=== PATIENT | male | born 1970 | race African-American/Black ===

== ENCOUNTER 2016-03-23 18:33 | Emergency (ER) | payer OTHER ==
[2016-03-23 18:41] VITALS: BP 136/100; PULSE 93; TEMP 98.2; BMI 42.5
--- NOTE | 2016-03-23 19:35 | PDOC ---
*Physical Exam - Vital Signs Last Vital Signs Temp Pulse Resp BP Pulse Ox 98.2 F 93 H 18 136/100 100 03/23/16 18:36 03/23/16 18:36 03/23/16 18:36 03/23/16 18:36 03/23/16 18:36 ED Treatment Course - LABORATORY CBC & Chemistry Diagram: 03/23/16 20:00 03/23/16 20:00 Medical Decision Making - Medical Decision Making 03/23/16 19:35 agree with care from ASHLEIGH Holden *DC/Admit/Observation/Transfer Diagnosis at time of Disposition: Chest pain - Discharge Dispostion Disposition: HOME - Prescriptions Prescriptions: Oxycodone HCl/Acetaminophen [Endocet 5-325 Tablet] 1 each PO Q6H PRN #16 tablet MDD 4 tabs PRN Reason: Severe Pain - Referrals Referrals: Silviano Estevez MD [Non Staff, Medical] - Jessica Magdaleno [Primary Care Provider] - - Patient Instructions Printed Discharge Instructions: DI for Atypical Chest Pain Additional Instructions: FOLLOW UP WITH DR. ESTEVEZ THIS WEEK TO ESTABLISH CARE. CALL TO SCHEDULE APPOINTMENT. YOU MUST FOLLOW UP WITHOUT FAIL. TAKE MEDICATIONS PRESCRIBED. DO NOT DRIVE, DRINK ALCOHOL, OR OPERATE HEAVY MACHINERY WHILE TAKING PERCOCET. YOU MUST NOT AND CAN NOT USE THE EMERGENCY DEPARTMENT FOR YOU PAIN MANAGEMENT NEEDS/MEDICATIONS. THIS IS WHY YOU NEED TO SEE A GENERAL MEDICINE PHYSICIAN. RETURN IF ANY CONCERNS FOR FURTHER EVALUATION. Print Language: LIBERIAN
[2016-03-23] MEDS ORDERED: OXYCODONE/APAP 5/325MG COMBO TABLET PO ONE (19:38)
[2016-03-23] MEDS ORDERED: OXYCODONE/APAP 5/325MG COMBO TABLET ONE (19:43)
[2016-03-23 20:10] LABS: MCH 27.2 pg (25.7-33.7); MCHC 32.6 g/dl (32.0-35.9); MEAN CELL VOLUME 83.6 fl (80-96); MEAN PLT VOLUME 9.4 fl (7.5-11.1); RDW 14.4 % (11.9-15.9); WHITE BLOOD COUNT 8.5 K/mm3 (4.0-10.0)
[2016-03-23 20:20] LABS: URINE APPEARANCE CLEAR; URINE BILIRUBIN NEGATIVE (NEGATIVE); URINE BLOOD NEGATIVE (NEGATIVE); URINE COLOR LT. YELLOW; URINE GLUCOSE (UA) NEGATIVE (NEGATIVE); URINE KETONE NEGATIVE (NEGATIVE); URINE LEUK ESTERASE NEGATIVE (NEGATIVE); URINE NITRITE NEGATIVE (NEGATIVE); URINE PROTEIN NEGATIVE (NEGATIVE); URINE UROBILINOGEN 0.2 E.U/dl E.U./dl (0.2-1.0)
[2016-03-23 20:31] LABS: AMYLASE 46 U/L (25-115); ANION GAP 5 (8-16); CALCIUM 8.9 mg/dL (8.5-10.1); CO2 30 mmol/L (21-32); CREATININE 1.1 mg/dL (0.7-1.3); GLUCOSE,RANDOM 97 mg/dL (74-106); SGOT/AST 28 U/L (15-37); SGPT/ALT 24 U/L (12-78)
[2016-03-23 20:32] LABS: ALK PHOS 133 U/L (45-117); BILIRUBIN,TOTAL 0.3 mg/dL (0.2-1.0); TOT PROT 7.7 g/dl (6.4-8.2)
--- NOTE | 2016-03-23 21:05 | PDOC ---
History of Present Illness - General Chief Complaint: Chest Pain Stated Complaint: CHEST DISCOMFORT Time Seen by Provider: 03/23/16 19:14 History Source: Patient Exam Limitations: No Limitations - History of Present Illness Initial Comments: 03/23/16 21:01 45yo Male patient presents to ED c/o epigastric, chest pain, muscle cramps, and back pains. Patient reports PmHx:HTN, HLD, Cardiac Arrythmia. Patient recently seen in this ED 1 month ago for similar episode and was given "injection for pain." He reports h/a every week, nausea and weight gain of 60 lbs over 5 months later corrected to over 6 years. He currently does not have a PCP. He walks with a cane, but was not prescribed it. He reports history of hernia disc but has not seen a orthopedist. Patient reports he visits [facility] for his care, but has not seen anyone there because each time he is there the doctor is out of office. Patient states he has been using the emergency department for his pain medication refills. Patient denies any other complaints at this time. Presenting Symptoms: Back Pain, Chest Pain, Dizziness, Nausea, Other (Muscle Cramps) Timing/Duration: reports: changing over time Severity/Quality: reports: moderate Location: reports: substernal Chest Pain Radiation: reports: no radiation Activities at Onset: reports: no specific activity Prior Chest Pain/Cardiac Workup: reports: No prior chest pain, No prior cardiac workup Modifying Factors: improves with: rest Nitro Today/Relief: No: no nitro taken today, 0.4 mg x 1, 0.4 mg x 2, 0.4 mg x 3 , 0.4 mg x 4, provided by EMS, provided by ED, provided at home, no relief, mild relief, complete relief Aspirin Received prior to arrival (Core Measure): No: no aspirin today, unknown , 81 mg x 1, 81 mg x 2, 81 mg x 3, 81 mg x 4, 325 mg x 1, provided at home, provided by EMS, provided by ED ASA Contraindications (Core Measure): No: Allergy, Other, Active Blding w/i 24 hrs., Plavix, Receiving Warfarin Beta Dontrell given by EMS (Core Measure): No Beta Dontrell taken at Home (Core Measure): No Beta Dontrell Contraindications (Core Measure): Yes: Not Prescribed Beta Dontrell indicated at this time? (Core Measure): No Associated Symptoms: Yes: Back Pain, Chest Pain/pressure, Headache, Nausea Past History - Travel Traveled outside of the country in the last 30 days: No Close contact w/someone who was outside of country & ill: No - Past Medical History Allergies/Adverse Reactions: Allergies Allergy/AdvReac Type Severity Reaction Status Date / Time lactose Allergy Verified 03/23/16 18:35 Home Medications: Ambulatory Orders Cane 1 each MC DAILY PRN #1 each 11/16/14 Methocarbamol [Robaxin -] 500 mg PO TID PRN #30 tablet 11/16/14 Cyclobenzaprine HCl [Flexeril -] 5 mg PO TID PRN #12 tablet 02/03/16 Oxycodone HCl/Acetaminophen [Endocet 5-325 Tablet] 1 each PO Q6H PRN #16 tablet MDD 4 tabs 03/23/16 Cardiac Disorders: Yes (palpitations) Hypercholesterolemia: Yes Other medical history: BACK PROBLEMS - Psycho/Social/Smoking Cessation Hx Anxiety: No Suicidal Ideation: No Smoking History: Never smoked Have you smoked in the past 12 months: No Information on smoking cessation initiated: No Hx Alcohol Use: No Drug/Substance Use Hx: No Substance Use Type: None Cardiac Specific PMH - Complaint Specific PMHX Abdominal Aortic Aneurysm: No Angina: No Cardiac Arrhythmia: Yes Cardiac Stent: No GERD: No Myocardial Infarction: No Pacemaker: No Pulmonary Embolus: No Valvular Heart Disease: No Peripheral Vascular Disease: No Review of Systems - Review of Systems Respiratory: No: Cough, Shortness of Breath, Wheezing Cardiac (ROS): Yes: Chest Pain ABD/GI: Yes: Nausea, Other (Epigastric Abdominal Pain). No: Constipated, Diarrhea, Poor Appetite, Poor Fluid Intake, Vomiting : No: Burning, Dysuria, Flank Pain, Hematuria Musculoskeletal: Yes: Back Pain. No: Muscle Pain, Muscle Weakness Integumentary: No: Bruising, Dryness, Flushing, Rash Neurological: Yes: Headache, Dizziness. No: Numbness, Paresthesia, Seizure, Tremors, Weakness Psychiatric: Yes: Depression Endocrine: No: Symptoms Reported, See HPI, Excessive Sweating, Flushing, Intolerance to Cold, Intolerance to Heat, Increased Hunger, Increased Thirst, Increased Urine, Unexplained Weight Gain, Unexplained Weight Loss, Change in Weight, Other Hematologic/Lymphatic: No: Symptoms Reported, See HPI, Anemia, Blood Clots, Easy Bleeding, Easy Bruising, Bleeding Diathesis, Lymph Node Abnormalities, Swollen Glands, Other All Other Systems: Reviewed and Negative *Physical Exam - Vital Signs Last Vital Signs Temp Pulse Resp BP Pulse Ox 98.2 F 93 H 18 136/100 100 03/23/16 18:36 03/23/16 18:36 03/23/16 18:36 03/23/16 18:36 03/23/16 18:36 - Physical Exam General Appearance: Yes: Nourished, Appropriately Dressed. No: Apparent Distress HEENT: positive: EOMI, ERNA, Normal ENT Inspection, Normal Voice, Symmetrical, TMs Normal, Pharynx Normal Neck: positive: Trachea midline, Supple. negative: Stridor, Lymphadenopathy (R) , Lymphadenopathy (L) Respiratory/Chest: positive: Lungs Clear, Normal Breath Sounds. negative: Crackles, Rales, Rhonchi, Stridor, Wheezing Cardiovascular: positive: Regular Rhythm, Regular Rate. negative: Edema, JVD, Murmur, Bradycardia, Tachycardia, Diastolic Murmur Gastrointestinal/Abdominal: positive: Normal Bowel Sounds, Soft. negative: Rebound, Hepatomegaly, Spleenomegaly Musculoskeletal: positive: Normal Inspection. negative: CVA Tenderness Extremity: positive: Normal Capillary Refill, Normal Inspection, Normal Range of Motion Integumentary: positive: Normal Color, Dry, Warm Neurologic: positive: reimbursement director II-XII NML intact, Fully Oriented, Alert, Normal Mood/ Affect, Normal Response, Motor Strength 5/5 Heart Score/ECG Review - History History: Slightly suspicious - Electrocardiogram EKG: Normal - Age Age: </= 45 - Risk Factors Risk Factors Heart Score: Yes Hx Hypercholesterolemia, Yes Hx Hypertension, No Hx Diabetes, No Smoking History, No Positive family hx of cardiac disease, No Hx Obesity Based on the list above the patient has:: 1-2 risk factors - Troponin Troponin: </= normal limit - Score Heart Score - Total: 1 - ECG Impressions Normal ECG: Yes Non-specific ST Elevation: No Ischemic Changes: No Bradycardia: No Torsades de Pointes: No WPW: No ED Treatment Course - LABORATORY CBC & Chemistry Diagram: 03/23/16 20:00 03/23/16 20:00 - ADDITIONAL ORDERS Additional order review: Laboratory Results 01/12/2803/23/16 03/23/16 21:32 20:00 20:00 Sodium 140 Potassium 4.5 Chloride 105 Carbon Dioxide 30 Anion Gap 5 L BUN 7 Creatinine 1.1 Creat Clearance w eGFR > 60 Random Glucose 97 Calcium 8.9 Total Bilirubin 0.3 AST 28 ALT 24 Alkaline Phosphatase 133 H Troponin I < 0.02 Total Protein 7.7 Albumin 4.0 Total Amylase 46 Lipase 87 Urine Color Lt. yellow Urine Appearance Clear Urine pH 6.0 Ur Specific [place] <= 1.005 Urine Protein Negative Urine Glucose (UA) Negative Urine Ketones Negative Urine Blood Negative Urine Nitrite Negative Urine Bilirubin Negative Urine Urobilinogen 0.2 e.u/dl Ur Leukocyte Esterase Negative 03/23/16 20:00 RBC 5.58 MCV 83.6 MCHC 32.6 RDW 14.4 MPV 9.4 - RADIOLOGY Radiology Studies Ordered: Category Date Time Status GALLBLADDER US [US] Stat Ultrasound 03/23/16 19:38 Completed - Medications Given in the ED: ED Medications Discontinued Medications Generic Name Dose Route Start Last Admin Trade Name Freq PRN Reason Stop Dose Admin Oxycodone/Acetaminophen 2 combo 03/23/16 19:38 03/23/16 19:42 Percocet 5/325 - PO 03/23/16 19:39 1 combo ONCE ONE Administration Medical Decision Making - Medical Decision Making 03/23/16 22:27 Patient has heart score of 1. Normal EKG. Normal Troponin. Plan: d/c to home. PCP follow up/referrals. *DC/Admit/Observation/Transfer Diagnosis at time of Disposition: Chest pain Qualifiers: Chest pain type: unspecified Qualified Code(s): R07.9 - Chest pain, unspecified - Discharge Dispostion Disposition: HOME Condition at time of disposition: Good Admit: No - Prescriptions Prescriptions: Oxycodone HCl/Acetaminophen [Endocet 5-325 Tablet] 1 each PO Q6H PRN #16 tablet MDD 4 tabs PRN Reason: Severe Pain - Referrals Referrals: Jessica Magdaleno [Primary Care Provider] - Silviano Estevez MD [Non Staff, Medical] - - Patient Instructions Printed Discharge Instructions: DI for Atypical Chest Pain Additional Instructions: FOLLOW UP WITH DR. ESTEVEZ THIS WEEK TO ESTABLISH CARE. CALL TO SCHEDULE APPOINTMENT. YOU MUST FOLLOW UP WITHOUT FAIL. TAKE MEDICATIONS PRESCRIBED. DO NOT DRIVE, DRINK ALCOHOL, OR OPERATE HEAVY MACHINERY WHILE TAKING PERCOCET. YOU MUST NOT AND CAN NOT USE THE EMERGENCY DEPARTMENT FOR YOU PAIN MANAGEMENT NEEDS/MEDICATIONS. THIS IS WHY YOU NEED TO SEE A GENERAL MEDICINE PHYSICIAN. RETURN IF ANY CONCERNS FOR FURTHER EVALUATION. Print Language: BERMUDIAN
[2016-03-23 21:21] LABS: PLATELET COMMENT2 NO CLUMPING NOTED; PLATELET COUNT 394 K/MM3 (134-434); PLATELET ESTIMATE ADEQUATE (NORMAL)
[2016-03-23] MEDS ORDERED: KETOROLAC TROMETHAMINE 60 MG/2 ML VIAL ONE (23:11)
[2016-03-23] MEDS ORDERED: KETOROLAC TROMETHAMINE 60 MG/2 ML VIAL IM ONE (23:12)
--- NOTE | 2016-03-24 09:37 | EKG ---
Test Reason : Blood Pressure : / mmHG Vent. Rate : 092 BPM Atrial Rate : 092 BPM P-R Int : 146 ms QRS Dur : 088 ms QT Int : 350 ms P-R-T Axes : 100 -25 -16 degrees QTc Int : 432 ms NORMAL SINUS RHYTHM POSSIBLE LEFT ATRIAL ENLARGEMENT SEPTAL INFARCT (CITED ON OR BEFORE 26-JUL-2007) ABNORMAL ECG WHEN COMPARED WITH ECG OF 16-NOV-2014 14:55, QUESTIONABLE CHANGE IN INITIAL FORCES OF SEPTAL LEADS NONSPECIFIC T WAVE ABNORMALITY NOW EVIDENT IN LATERAL LEADS Confirmed by BLANQUITA LEWIS, CHARLOTTE ([id number]) on 03/24/2016 9:36:53 AM Referred By: Confirmed By:CHARLOTTE JUARES MD
== END 2016-03-23 23:04 | disposition home or self-care (01) ==
LOC: JER 18:33
PROC: 3E0233Z Introduction of Anti-inflammatory into Muscle, Percutaneous Approach (ICD-10-PCS; principal; 2016-03-23)
DX: R07.9 Chest pain, unspecified (principal); I49.8 Other specified cardiac arrhythmias; I10 Essential (primary) hypertension; E78.00 Pure hypercholesterolemia, unspecified
CPT/HCPCS: 36415; 76705-TC; 80053; 81003; 82150; 83690; 84484; 85027; 93005; 93010; 96372; 99281-25

== ENCOUNTER 2018-12-15 21:21 | Inpatient (IN) | payer OTHER ==
[2018-12-15 21:35] VITALS: BMI 38.7
--- NOTE | 2018-12-15 21:35 | PDOC ---
Rapid Medical Evaluation Chief Complaint: Foreign Body (FB) Time Seen by Provider: 12/15/18 21:26 Medical Evaluation: Allergies Allergy/AdvReac Type Severity Reaction Status Date / Time lactose Allergy Verified 03/23/16 18:35 12/15/18 21:26 I have performed a brief in-person evaluation of this patient. The patient presents with a chief complaint of: A per EMS, pt called because he felt like a bug flew into his eye. In the ED, pt unsure why he is here, he has flight of ideas with a flat affect. (+)visual hallucinations, saw someone turning into a Robot downtown. Used to take seroquel for "depression and bipolar" Denies SI/HI. The patient will proceed to the ED for further evaluation. Discharge Disposition - Diagnosis Mental health problem - Referrals - Patient Instructions - Post Discharge Activity
[2018-12-15] MEDS ORDERED: HALOPERIDOL LACTATE 5 MG/ML IM ONE (21:51)
[2018-12-15] MEDS ORDERED: HALOPERIDOL LACTATE 5 MG/ML ONE (21:56)
[2018-12-15] MEDS ORDERED: LORazepam 2 MG/ML SDV VIAL ONE (21:56)
--- NOTE | 2018-12-15 22:50 | PDOC ---
Documentation entered by Ruchi Mcknight SCRIBE, acting as scribe for Mamie Alexis MD. Mamie Alexis MD: This documentation has been prepared by the Juan Luis scherer Adrianna, SCRIBE, under my direction and personally reviewed by me in its entirety. I confirm that the documentation accurately reflects all work, treatment, procedures, and medical decision making performed by me. Attending Attestation - Resident Resident Name: Sa Nayelyira - ED Attending Attestation I have performed the following: I have examined & evaluated the patient, The case was reviewed & discussed with the resident, I agree w/resident's findings & plan - HPI HPI: 12/15/18 22:46 48 YOM with h/o depression and bipolar presenting with agitation, disorganized thought, pressured speech, flight of ideas, while in triage, pt called because he felt like a bug flew into his eye. (+)visual hallucinations, saw someone turning into a Robot downtown. Denies SI/HI. pacing around department, talking loudly, disorganized thought and pressuring of speech, grandiose ideas and hallucinations. history somewhat limited due to clinical/psychiatric condition. - Physicial Exam PE: 12/15/18 22:48 tangential speech, disorganized thought, agitated, poorly cooperative, flat affect no SI/HI ambulatory, speech pressured. LANDON x4, no respiratory distress, abdomen nontender, back exam normal, skin color normal for ethinicity. 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 very disorganized behavior/agitated. given ativan/haldol - given profound agitation will obtain labs/EKG, utox, monitor 12/16/18 01:26 more calm with meds 1:1 security at bedside with patient, no events. psych eval/consult in the AM, no call back with answering service ASHLEIGH Gutiérrez. call to [facility] in the AM for bipolar/manic flare s/o overnight attg pending dispo. 12/16/18 02:07 12/16/18 16:57
--- NOTE | 2018-12-15 22:57 | PDOC ---
History of Present Illness - General Chief Complaint: Altered Mental Status Stated Complaint: EDP Time Seen by Provider: 12/15/18 21:26 History Source: Patient, Other Exam Limitations: Clinical Condition - History of Present Illness Initial Comments: 48yo M with possible PMH of Bipolar BIBA for a bug flying into his eye 3w ago. Pt states that a bug flew into his eye and the police pushed him down affecting his eye. Pt states that he did not want to come here and was forced to come here. He states he was out drinking because his friends and they were telling him upsetting things. RME note states that patient is seeing an upside down robot. 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 Past History - Past Medical History Allergies/Adverse Reactions: Allergies lactose Allergy (Verified 12/15/18 21:35) Home Medications: Ambulatory Orders Cane 1 each MC DAILY PRN #1 each 11/16/14 Methocarbamol [Robaxin -] 500 mg PO TID PRN #30 tablet 11/16/14 Cyclobenzaprine HCl [Flexeril -] 5 mg PO TID PRN #12 tablet 02/03/16 Oxycodone HCl/Acetaminophen [Endocet 5-325 Tablet] 1 each PO Q6H PRN #16 tablet MDD 4 tabs 03/23/16 - Immunization History Tetanus Status: Unknown - Social History Smoking Status: Current some day smoker Number of Cigarettes Per Day: 1 *Physical Exam - Vital Signs Last Vital Signs Temp Pulse Resp BP Pulse Ox 98.8 F 88 18 165/115 H 99 12/15/18 21:25 12/15/18 21:25 12/15/18 21:25 12/15/18 21:25 12/15/18 21:25 Plan - Order(s) Order(s): Orders last 12 hours Category Date Time Status CBC WITH DIFFERENTIAL Stat Lab 12/15/18 21:49 Uncollected DRUG SCREEN,UR ER- [facility] Stat Lab 12/15/18 21:50 Uncollected UA ([facility]) ONLY Stat Lab 12/15/18 21:49 Uncollected - Medications Given in the ED: ED Medications Discontinued Medications Generic Name Dose Route Start Last Admin Trade Name Freq PRN Reason Stop Dose Admin Lorazepam 2 mg 10/04/19 21:48 12/15/18 21:55 Ativan Injection - IVPUSH 12/15/18 21:49 Not Given ONCE ONE Lorazepam 5 mg 12/15/18 21:50 12/15/18 21:55 Ativan Injection - IVPUSH 12/15/18 21:51 Not Given ONCE ONE
--- NOTE | 2018-12-15 22:58 | PDOC ---
History of Present Illness - General Chief Complaint: Altered Mental Status Stated Complaint: EDP Time Seen by Provider: 12/15/18 21:26 History Source: Patient, Other - History of Present Illness Initial Comments: 12/15/18 22:58 48yo M with possible PMH of Bipolar BIBA for a bug flying into his eye 3w ago. Pt states that a bug flew into his eye and the police pushed him down affecting his eye. Pt states that he did not want to come here and was forced to come here. He states he was out drinking because his friends and they were telling him upsetting things. RME note states that patient is seeing an upside down robot. 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 *Patient is unable to give story, goes off on tangents. difficult to follow thought process. Answers some questions but not all. States he only takes meloxicam but ran out of medications. Per RME note, patient was taking Seroquel. Past History - Past Medical History Allergies/Adverse Reactions: Allergies Allergy/AdvReac Type Severity Reaction Status Date / Time lactose Allergy Verified 12/15/18 21:35 Home Medications: Ambulatory Orders Cane 1 each MC DAILY PRN #1 each 11/16/14 Methocarbamol [Robaxin -] 500 mg PO TID PRN #30 tablet 11/16/14 Cyclobenzaprine HCl [Flexeril -] 5 mg PO TID PRN #12 tablet 02/03/16 Oxycodone HCl/Acetaminophen [Endocet 5-325 Tablet] 1 each PO Q6H PRN #16 tablet MDD 4 tabs 03/23/16 Cardiac Disorders: Yes (palpitations) COPD: No Diabetes: No HTN: Yes Hypercholesterolemia: Yes Psychiatric Problems: Yes (bipolar, depression) - Psycho Social/Smoking Cessation Hx Smoking History: Current some day smoker Have you smoked in the past 12 months: No Number of Cigarettes Smoked Daily: 1 Information on smoking cessation initiated: No Hx Alcohol Use: Yes Drug/Substance Use Hx: No Substance Use Type: None Review of Systems - Review of Systems Constitutional: No: Chills HEENTM: Yes: Other (eye "feels weird" R eye) Respiratory: No: Symptoms reported Cardiac (ROS): No: Symptoms Reported ABD/GI: No: Symptoms Reported : No: Symptoms Reported Musculoskeletal: No: Symptoms Reported Integumentary: No: Symptoms Reported Neurological: No: Symptoms reported Psychiatric: Yes: Other (, VH) *Physical Exam - Vital Signs Last Vital Signs Temp Pulse Resp BP Pulse Ox 98.8 F 88 18 165/115 H 99 12/15/18 21:25 12/15/18 21:25 12/15/18 21:25 12/15/18 21:25 12/15/18 21:25 - Physical Exam General Appearance: Yes: Appropriately Dressed, Obese, Other (nonsensical statements) HEENT: positive: EOMI, ERNA, Pharynx Normal Neck: positive: Trachea midline, Supple. negative: Lymphadenopathy (R), Lymphadenopathy (L) Respiratory/Chest: positive: Lungs Clear, Normal Breath Sounds. negative: Crackles, Rales, Rhonchi, Stridor, Wheezing Cardiovascular: positive: Regular Rhythm, Regular Rate, S1, S2. negative: Edema , JVD, Murmur Vascular Pulses: Dorsalis-Pedis (R): 2+, Doralis-Pedis (L): 2+ Gastrointestinal/Abdominal: positive: Normal Bowel Sounds, Soft. negative: Tender, Rebound, Tenderness, Hernia Musculoskeletal: negative: CVA Tenderness, Muscle Spasm Extremity: positive: Normal Capillary Refill Integumentary: positive: Normal Color, Dry, Warm. negative: Cold, Clammy, Rash Neurologic: positive: director of undergraduate admissions II-XII NML intact, Alert, Normal Response, Motor Strength 5/5. negative: Normal Mood/Affect ED Treatment Course - LABORATORY CBC & Chemistry Diagram: 12/15/18 23:10 12/15/18 23:10 - Medications Given in the ED: ED Medications Discontinued Medications Generic Name Dose Route Start Last Admin Trade Name Freq PRN Reason Stop Dose Admin Haloperidol 5 mg 12/15/18 21:51 12/15/18 22:48 Haldol Injection (Fast Acting) - IM 12/15/18 21:52 5 mg ONCE ONE Administration Lorazepam 2 mg 12/15/18 21:48 12/15/18 21:55 Ativan Injection - IVPUSH 12/15/18 21:49 Not Given ONCE ONE Lorazepam 5 mg 12/15/18 21:50 12/15/18 21:55 Ativan Injection - IVPUSH 12/15/18 21:51 Not Given ONCE ONE Lorazepam 2 mg 12/15/18 21:51 12/15/18 22:48 Ativan Injection - IM 12/15/18 21:52 2 mg ONCE ONE Administration Medical Decision Making - Medical Decision Making 12/16/18 01:22 48yo M with likely pmh of schizophrenia/bipolar BIBA for psychiatric problem. Vitals significant for hypertension pt talking tangentially, nonsensical, not answering questions directly, stating he hears his friends, stating he wants to leave. mood is labile; pt goes from threatening personnel to being flirtatious to laughing. tangential thinking, AH/VH, labile mood concerning for manic episode. Most times it is difficult to interject and redirect patient. Patient does not have capicity to make decisions, cannot let patient leave AMA without being seen by psych. to calm down patient (he was roaming halls, being loud and distrupting others) 2mg IM ativan and 5mg IM Haldol given. labs including cbc, cmp, salicylates, apap, alcohol, utox. ekg labs wnl. utox and ekg pending. psych consult pt will need psych clearance and/or transfer to psychiatric facility. signed out to night team Discharge - Discharge Information Problems reviewed: Yes Clinical Impression/Diagnosis: Mental health problem - Follow up/Referral - Patient Discharge Instructions - Post Discharge Activity
[2018-12-15 23:22] LABS: BASO % 0.7 % (0-2.0); EOS % 1.7 % (0-4.5); HEMATOCRIT 46.2 % (35.4-49); HEMOGLOBIN 15.1 GM/dL (11.7-16.9); LYMPH % 29.5 % (8-40); MCH 28.3 pg (25.7-33.7); MCHC 32.7 g/dl (32.0-35.9); MEAN CELL VOLUME 86.5 fl (80-96); MONO % 4.2 % (3.8-10.2); NEUT % 63.9 % (42.8-82.8); RBC 5.34 M/mm3 (4.00-5.60); RDW 14.6 % (11.9-15.9); WHITE BLOOD COUNT 7.7 K/mm3 (4.0-10.0)
[2018-12-15 23:42] LABS: MEAN PLT VOLUME 9.3 fl (7.5-11.1)
[2018-12-15 23:43] LABS: PLATELET COUNT 360 K/MM3 (134-434)
[2018-12-15 23:55] LABS: ALBUMIN 4.2 g/dl (3.4-5.0); BILIRUBIN,TOTAL 0.5 mg/dL (0.2-1); BLOOD UREA NITROGEN 11.2 mg/dL (7-18); CALCIUM 9.2 mg/dL (8.5-10.1); CREATININE 1.2 mg/dL (0.55-1.3); POTASSIUM 3.5 mmol/L (3.5-5.1); TOT PROT 7.5 g/dl (6.4-8.2)
--- NOTE | 2018-12-16 02:08 | PDOC ---
*Physical Exam - Vital Signs Last Vital Signs Temp Pulse Resp BP Pulse Ox 98.8 F 88 18 165/115 H 99 12/15/18 21:25 12/15/18 21:25 12/15/18 21:25 12/15/18 21:25 12/15/18 21:25 ED Treatment Course - LABORATORY CBC & Chemistry Diagram: 12/15/18 23:10 12/15/18 23:10 - ADDITIONAL ORDERS Additional order review: Laboratory Results 12/15/18 12/15/18 12/15/18 23:10 23:10 23:10 Sodium 143 Potassium 3.5 Chloride 109 H Carbon Dioxide 27 Anion Gap 8 BUN 11.2 Creatinine 1.2 Est GFR (CKD-EPI)AfAm 82.96 Est GFR (CKD-EPI)NonAf 71.58 Random Glucose 135 H Calcium 9.2 Total Bilirubin 0.5 AST 40 H ALT 34 Alkaline Phosphatase 134 H Total Protein 7.5 Albumin 4.2 Salicylates Acetaminophen <2.0 Alcohol, Quantitative < 3.0 12/15/18 23:10 Sodium Potassium Chloride Carbon Dioxide Anion Gap BUN Creatinine Est GFR (CKD-EPI)AfAm Est GFR (CKD-EPI)NonAf Random Glucose Calcium Total Bilirubin AST ALT Alkaline Phosphatase Total Protein Albumin Salicylates < 1.7 L Acetaminophen Alcohol, Quantitative 12/15/18 23:10 RBC 5.34 MCV 86.5 MCHC 32.7 RDW 14.6 MPV 9.3 Neutrophils % 63.9 Lymphocytes % 29.5 Monocytes % 4.2 Eosinophils % 1.7 Basophils % 0.7 - Medications Given in the ED: ED Medications Discontinued Medications Generic Name Dose Route Start Last Admin Trade Name Lety PRN Reason Stop Dose Admin Haloperidol 5 mg 12/15/18 21:51 12/15/18 22:48 Haldol Injection (Fast Acting) - IM 12/15/18 21:52 5 mg ONCE ONE Administration Lorazepam 2 mg 12/15/18 21:48 12/15/18 21:55 Ativan Injection - IVPUSH 12/15/18 21:49 Not Given ONCE ONE Lorazepam 5 mg 12/15/18 21:50 12/15/18 21:55 Ativan Injection - IVPUSH 12/15/18 21:51 Not Given ONCE ONE Lorazepam 2 mg 12/15/18 21:51 12/15/18 22:48 Ativan Injection - IM 12/15/18 21:52 2 mg ONCE ONE Administration Medical Decision Making - Medical Decision Making Patient signed out by Dr. Adler 48yo M with possible PMH of Bipolar BIBA for a bug flying into his eye 3w ago. Pending urine collection, EKG, and psych consult 12/16/18 02:07 EKG: rate 63, QTc 435, ST elevations in V1, V2, and V3 without reciprocal changes Patient states he has palpitations. Discussed case with Dr. Parker via transfer center for concern for STEMI He is not overly convinced this is an DC He states we can medically manage the patient for now; admit for ECHO and serial troponins We can give 325 ASA as it won't hurt the patient His cell number [phone] in case we would like to directly consult with him We will admit for EKG changes Microblog sent 12/16/18 04:[address] Hoyt who accepted patient for telemetry observation under Dr. Milligan 12/16/18 05:08 Call to Junito Gutiérrez [phone] unsuccessful. This is likely the incorrect number. 12/16/18 05:11 Left a voicemail for school psychology professor Junito Gutiérrez, 12/16/18 05:15 Dr. Milligan requested med/surg admission. Order changed. 12/16/18 05:23 Second call to school psychology professor Junito Gutiérrez. Left a voicemail. 12/16/18 06:32 Discharge - Discharge Information Problems reviewed: Yes Clinical Impression/Diagnosis: Mental health problem, ST segment changes on electrocardiogram, Palpitations Condition: Improved Disposition: AGAINST MEDICAL ADVICE - Admission Yes - Follow up/Referral - Patient Discharge Instructions - Post Discharge Activity
--- NOTE | 2018-12-16 03:36 | PDOC ---
*Physical Exam - Vital Signs Last Vital Signs Temp Pulse Resp BP Pulse Ox 98.8 F 88 18 165/115 H 99 12/15/18 21:25 12/15/18 21:25 12/15/18 21:25 12/15/18 21:25 12/15/18 21:25 ED Treatment Course - LABORATORY CBC & Chemistry Diagram: 12/15/18 23:10 12/15/18 23:10 - ADDITIONAL ORDERS Additional order review: Laboratory Results 12/15/18 12/15/18 12/15/18 23:10 23:10 23:10 WBC RBC Hgb Hct MCV MCH MCHC RDW Plt Count MPV Absolute Neuts (auto) Neutrophils % Lymphocytes % Monocytes % Eosinophils % Basophils % Nucleated RBC % Sodium 143 Potassium 3.5 Chloride 109 H Carbon Dioxide 27 Anion Gap 8 BUN 11.2 Creatinine 1.2 Est GFR (CKD-EPI)AfAm 82.96 Est GFR (CKD-EPI)NonAf 71.58 Random Glucose 135 H Calcium 9.2 Total Bilirubin 0.5 AST 40 H ALT 34 Alkaline Phosphatase 134 H Total Protein 7.5 Albumin 4.2 Salicylates Acetaminophen <2.0 Alcohol, Quantitative < 3.0 12/15/18 12/15/18 23:10 23:10 WBC 7.7 RBC 5.34 Hgb 15.1 Hct 46.2 MCV 86.5 MCH 28.3 MCHC 32.7 RDW 14.6 Plt Count 360 MPV 9.3 Absolute Neuts (auto) 4.9 Neutrophils % 63.9 Lymphocytes % 29.5 Monocytes % 4.2 Eosinophils % 1.7 Basophils % 0.7 Nucleated RBC % 0 Sodium Potassium Chloride Carbon Dioxide Anion Gap BUN Creatinine Est GFR (CKD-EPI)AfAm Est GFR (CKD-EPI)NonAf Random Glucose Calcium Total Bilirubin AST ALT Alkaline Phosphatase Total Protein Albumin Salicylates < 1.7 L Acetaminophen Alcohol, Quantitative 12/15/18 23:10 RBC 5.34 MCV 86.5 MCHC 32.7 RDW 14.6 MPV 9.3 Neutrophils % 63.9 Lymphocytes % 29.5 Monocytes % 4.2 Eosinophils % 1.7 Basophils % 0.7 - Medications Given in the ED: ED Medications Discontinued Medications Generic Name Dose Route Start Last Admin Trade Name Freq PRN Reason Stop Dose Admin Haloperidol 5 mg 12/15/18 21:51 12/15/18 22:48 Haldol Injection (Fast Acting) - IM 12/15/18 21:52 5 mg ONCE ONE Administration Lorazepam 2 mg 12/15/18 21:48 12/15/18 21:55 Ativan Injection - IVPUSH 12/15/18 21:49 Not Given ONCE ONE Lorazepam 5 mg 12/15/18 21:50 12/15/18 21:55 Ativan Injection - IVPUSH 12/15/18 21:51 Not Given ONCE ONE Lorazepam 2 mg 12/15/18 21:51 12/15/18 22:48 Ativan Injection - IM 12/15/18 21:52 2 mg ONCE ONE Administration Medical Decision Making - Medical Decision Making 12/16/18 03:34 Pt's EKG was handed to me and there is an anterior STEMI; compared to the EKGs from 2017, pt has ST elevation. We are calling [facility] 12/16/18 03:36 Pt has been in the ER for 6hrs and is awaiting psych evaluation. 12/16/18 03:45 [facility] called; they want to follow troponins and manage patient medically here. 12/16/18 03:47 Pt will get ASA plavix. We are still waiting for the card enzyme add on to come back. We will send off another cardiac enzyme (6hr; 2nd set) Pt will be admitted to the hospitalist tele unit. 12/16/18 05:09 1st CPK 395; 2nd 312; both troponins negative. Pt will be admitted for telemetry obs; hospitalist aware. Discharge - Discharge Information Problems reviewed: Yes Clinical Impression/Diagnosis: Mental health problem, ST segment changes on electrocardiogram, Palpitations Condition: Guarded - Admission Yes - Follow up/Referral - Patient Discharge Instructions - Post Discharge Activity
[2018-12-16] MEDS ORDERED: ASPIRIN 81 MG CHEWABLE TABLETS PO ONE (03:46)
[2018-12-16] MEDS ORDERED: CLOPIDOGREL BISULFATE 300 MG TABLET PO ONE (03:46)
[2018-12-16] MEDS ORDERED: CLOPIDOGREL BISULFATE 300 MG TABLET ONE (03:52)
[2018-12-16] MEDS ORDERED: ASPIRIN 81 MG CHEWABLE TABLETS ONE (03:52)
[2018-12-16 04:16] LABS: URINE APPEARANCE CLEAR; URINE BILIRUBIN NEGATIVE (NEGATIVE); URINE COLOR YELLOW; URINE GLUCOSE (UA) NEGATIVE (NEGATIVE); URINE KETONE TRACE (NEGATIVE); URINE LEUK ESTERASE NEGATIVE (NEGATIVE); URINE NITRITE NEGATIVE (NEGATIVE); URINE PROTEIN NEGATIVE (NEGATIVE); URINE UROBILINOGEN 0.2 mg/dL (0.2-1.0)
[2018-12-16 04:36] LABS: COCAINE, UR NEGATIVE ng/ml (CUTOFF=300); METHADONE, UR NEGATIVE ng/ml (CUTOFF=300); OPIATES, URI NEGATIVE ng/ml (CUTOFF=300); URINE AMPHETAMINES NEGATIVE ng/ml (CUTOFF=500); URINE BARBITURATES NEGATIVE ng/ml (CUTOFF=200); URINE BENZODIAZEPINES NEGATIVE ng/ml (CUTOFF=200)
[2018-12-16 04:39] LABS: PHENCYCLIDINE,URINE POSITIVE ng/ml (CUTOFF=25)
--- NOTE | 2018-12-16 05:35 | PN ---
Teaching Attending Note Name of Resident: Camryn Hoyt ATTENDING PHYSICIAN STATEMENT I saw and evaluated the patient. I reviewed the resident's note and discussed the case with the resident. I agree with the resident's findings and plan as documented. SUBJECTIVE: 48yo M with possible PMH of Bipolar BIBA for a bug flying into his eye 3w ago. There was some concern over elevated st segments in anterior leads in but lack of clinical symptoms (no chest pain or shortness of breath) and negative troponins x2 are not consistent with ACS. Urine drug screen was positive for PCP. Patient was agitated in ER and given multiple doses of ativan and haldol to calm him down. OBJECTIVE: Last Vital Signs Temp Pulse Resp BP Pulse Ox 97.5 F L 70 17 140/83 99 12/16/18 03:44 12/16/18 03:44 12/16/18 03:44 12/16/18 03:44 12/16/18 03:44 gen - disheveled heent- atraumatic cv-s1+s2+rrr chest clear skin - no rashes Abnormal Lab Results 12/15/18 12/15/18 12/15/18 23:10 23:10 23:10 Chloride 109 H Random Glucose 135 H AST 40 H Alkaline Phosphatase 134 H Creatine Kinase 395 H Urine Ketones Salicylates < 1.7 L Phencyclidine Screen 12/16/18 12/16/18 12/16/18 04:01 04:01 04:15 Chloride Random Glucose AST Alkaline Phosphatase Creatine Kinase 312 H Urine Ketones Trace H Salicylates Phencyclidine Screen Positive A* ekg reviewed ASSESSMENT AND PLAN: #acute PCP intoxication #Bipolar disorder off medication #Mild CK elevation likely from underlying rhabdo -med/surg -iv fluid hydration -one to one observation for safety -check electrolytes, replete prn -ativan, haldol prn if agitation -CIWA -psych eval -DVT ppx
[2018-12-16] MEDS ORDERED: FOLIC ACID INJECTION - 1 MG, THIAMINE HCL 100 MG, MULTIVIT INJECTION ADULT 10 ML in SOD... IVPB ONE (06:59)
[2018-12-16] MEDS ORDERED: LORazepam 2 MG/ML SDV VIAL IVPUSH PRN (06:59)
[2018-12-16] MEDS ORDERED: HALOPERIDOL LACTATE 5 MG/ML IM PRN (07:00)
--- NOTE | 2018-12-16 07:28 | HP ---
CHIEF COMPLAINT: Agitation PCP: HISTORY OF PRESENT ILLNESS: 48 y/o M with PMHx of Bipolar depression (unclear if additionally has schizophrenia, HTN, HLD however mentioned as per EMR) was BIBEMS for agitation, tangential thoughts, disorganized thought, and flight of ideas. As per EMR, patient was extremely agitated and hallucinating (Saw robots) requiring Haloperidol and IV Ativan. During my interview, patient makes mention of a bug or tree bark landing in his eye 2-3 weeks ago. He then mentions he has had increasing EtOH use and smoking marijuana because of recent of his friend. Patient is unable to provide additional history as he veers off into tangents with nonsensical speech and has a difficult to follow thought process. EKG done in ED revealed some possible repolarization changes but concerning for ST segment elevation in V1-V3 however patient did not have sign of ACS. ED Staff discussed case with [facility] for which Dr. Parker (cell [phone]) who says this is not concerning for STEMI. Of note, he mentions he is on meloxicam for chronic back pain. Additionally mentions previously using seroquel 25mg daily but has not used in some time. Denies suicidal ideation. ER course was notable for: (1) Utox + for PCP (2) Ativan, Haldol (3) Psych consult Recent Travel: Denies PAST MEDICAL HISTORY: As above PAST SURGICAL HISTORY: Unable to obtain Social History: Smoking: Unable to obtain Alcohol: Unable to quantify however mentions using EtOH Drugs: Unable to quantify however mentions smoking marijuana Allergies lactose Allergy (Verified 12/15/18 21:35) HOME MEDICATIONS: Home Medications Medication Instructions Recorded Cane 1 each MC DAILY PRN #1 each 11/16/14 Methocarbamol [Robaxin -] 500 mg PO TID PRN #30 tablet 11/16/14 Cyclobenzaprine HCl [Flexeril -] 5 mg PO TID PRN #12 tablet 02/03/16 Oxycodone HCl/Acetaminophen 1 each PO Q6H PRN #16 tablet MDD 4 03/23/16 [Endocet 5-325 Tablet] tabs REVIEW OF SYSTEMS As per HPI PHYSICAL EXAMINATION Vital Signs - 24 hr 12/15/18 12/16/18 21:25 03:44 Temperature 98.8 F 97.5 F L Pulse Rate 88 Pulse Rate [ 70 Right] Respiratory 18 17 Rate Blood Pressure 165/115 H Blood Pressure 140/83 [Left Arm] O2 Sat by Pulse 99 99 Oximetry (%) GENERAL: Disheveled, Awake, alert HEAD: NCAT LUNGS: Clear to auscultation bilaterally. No wheezes, no crackles. HEART: Regular rate and rhythm, normal S1 and S2 without murmur ABDOMEN: Obese, Soft, nontender, + bowel sounds EXTREMITIES: No peripheral edema. Laboratory Results - last 24 hr 12/15/18 12/15/18 12/15/18 23:10 23:10 23:10 WBC 7.7 RBC 5.34 Hgb 15.1 Hct 46.2 MCV 86.5 MCH 28.3 MCHC 32.7 RDW 14.6 Plt Count 360 MPV 9.3 Absolute Neuts (auto) 4.9 Neutrophils % 63.9 Lymphocytes % 29.5 Monocytes % 4.2 Eosinophils % 1.7 Basophils % 0.7 Nucleated RBC % 0 Sodium 143 Potassium 3.5 Chloride 109 H Carbon Dioxide 27 Anion Gap 8 BUN 11.2 Creatinine 1.2 Est GFR (CKD-EPI)AfAm 82.96 Est GFR (CKD-EPI)NonAf 71.58 Random Glucose 135 H Calcium 9.2 Total Bilirubin 0.5 AST 40 H ALT 34 Alkaline Phosphatase 134 H Creatine Kinase Creatine Kinase Index CK-MB (CK-2) Troponin I Total Protein 7.5 Albumin 4.2 Urine Color Urine Appearance Urine pH Ur Specific [place] Urine Protein Urine Glucose (UA) Urine Ketones Urine Blood Urine Nitrite Urine Bilirubin Urine Urobilinogen Ur Leukocyte Esterase Salicylates < 1.7 L Opiates Screen Methadone Screen Acetaminophen Barbiturate Screen Phencyclidine Screen Ur Amphetamines Screen MDMA (Ecstasy) Screen Benzodiazepines Screen Cocaine Screen U Marijuana (THC) Screen Alcohol, Quantitative 12/15/18 12/15/18 12/16/18 23:10 23:10 04:01 WBC RBC Hgb Hct MCV MCH MCHC RDW Plt Count MPV Absolute Neuts (auto) Neutrophils % Lymphocytes % Monocytes % Eosinophils % Basophils % Nucleated RBC % Sodium Potassium Chloride Carbon Dioxide Anion Gap BUN Creatinine Est GFR (CKD-EPI)AfAm Est GFR (CKD-EPI)NonAf Random Glucose Calcium Total Bilirubin AST ALT Alkaline Phosphatase Creatine Kinase 395 H Creatine Kinase Index 0.3 CK-MB (CK-2) 1.2 Troponin I < 0.02 Total Protein Albumin Urine Color Yellow Urine Appearance Clear Urine pH 6.0 Ur Specific [place] 1.016 Urine Protein Negative Urine Glucose (UA) Negative Urine Ketones Trace H Urine Blood Negative Urine Nitrite Negative Urine Bilirubin Negative Urine Urobilinogen 0.2 Ur Leukocyte Esterase Negative Salicylates Opiates Screen Methadone Screen Acetaminophen <2.0 Barbiturate Screen Phencyclidine Screen Ur Amphetamines Screen MDMA (Ecstasy) Screen Benzodiazepines Screen Cocaine Screen U Marijuana (THC) Screen Alcohol, Quantitative < 3.0 12/16/18 12/16/18 04:01 04:15 WBC RBC Hgb Hct MCV MCH MCHC RDW Plt Count MPV Absolute Neuts (auto) Neutrophils % Lymphocytes % Monocytes % Eosinophils % Basophils % Nucleated RBC % Sodium Potassium Chloride Carbon Dioxide Anion Gap BUN Creatinine Est GFR (CKD-EPI)AfAm Est GFR (CKD-EPI)NonAf Random Glucose Calcium Total Bilirubin AST ALT Alkaline Phosphatase Creatine Kinase 312 H Creatine Kinase Index 0.3 CK-MB (CK-2) 1.2 Troponin I < 0.02 Total Protein Albumin Urine Color Urine Appearance Urine pH Ur Specific [place] Urine Protein Urine Glucose (UA) Urine Ketones Urine Blood Urine Nitrite Urine Bilirubin Urine Urobilinogen Ur Leukocyte Esterase Salicylates Opiates Screen Negative Methadone Screen Negative Acetaminophen Barbiturate Screen Negative Phencyclidine Screen Positive A* Ur Amphetamines Screen Negative MDMA (Ecstasy) Screen Negative Benzodiazepines Screen Negative Cocaine Screen Negative U Marijuana (THC) Screen Negative Alcohol, Quantitative Active Medications Folic Acid (Folic Acid -) 1 mg PO DAILY RODRI Haloperidol (Haldol Injection (Fast Acting) -) 5 mg IM Q4H PRN PRN Reason: ANXIETY Folic Acid 1 mg/ Thiamine HCl 100 mg/ Multivitamins/Minerals 10 ml/ Sodium Chloride 1,000 mls @ 125 mls/hr IVPB ONCE ONE Stop: 12/16/18 14:58 Lorazepam (Ativan Injection -) 2 mg IVPUSH Q4H PRN PRN Reason: ANXIETY Multivitamins/Minerals/Vitamin C (Tab-A-Vit -) 1 tab PO DAILY RODRI Thiamine HCl (Vitamin B1 -) 100 mg PO DAILY RODRI ASSESSMENT/PLAN: 48 y/o M with PMHx of Bipolar depression was BIBEMS for agitation, tangential thoughts, disorganized thought, and flight of ideas. #PCP Intoxication -Continue Haloperidol, Lorazepam PRN for agitation/Anxiety -IV Hydration via Banana bag -1:1 observation -Replete lytes -CIWA protocol -Thiamine/FOlic acid/MVI #Hx of Bipolar depression -Currently off medications -Psych (Dr. Crocker) COnsulted #Repolarization changes on EKG -No clinical signs of ACS, Trop < 0.02 x 2 -Trend trop and EKG -Dr. Macdonald at [facility] mentions not concerning for CT #FEN -Banana bag -Replete lytes PRN -Regular diet #PPx -DVT: SCDs Dispo: Admit to Med-Surg Visit type - Emergency Visit Emergency Visit: Yes ED Registration Date: 12/16/18 Care time: The patient presented to the Emergency Department on the above date and was hospitalized for further evaluation of their emergent condition. - New Patient This patient is new to me today: Yes Date on this admission: 12/16/18 - Critical Care Critical Care patient: No ATTENDING PHYSICIAN STATEMENT I saw and evaluated the patient. I reviewed the resident's note and discussed the case with the resident. I agree with the resident's findings and plan as documented. SUBJECTIVE: OBJECTIVE: ASSESSMENT AND PLAN:
[2018-12-16 09:05] VITALS: BP 145/89; PULSE 76; TEMP 97.9
--- NOTE | 2018-12-16 09:49 | EKG ---
Test Reason : Blood Pressure : / mmHG Vent. Rate : 063 BPM Atrial Rate : 063 BPM P-R Int : 166 ms QRS Dur : 088 ms QT Int : 426 ms P-R-T Axes : 045 -09 004 degrees QTc Int : 435 ms NORMAL SINUS RHYTHM ST ELEVATION, CONSIDER EARLY REPOLARIZATION, PERICARDITIS, OR INJURY NONSPECIFIC ST ABNORMALITY ABNORMAL ECG Confirmed by BRADLEY BRYANT MD ([id number]) on 12/16/2018 9:49:39 AM Referred By: Confirmed By:BRADLEY BRYANT MD
[2018-12-16] MEDS ORDERED: FOLIC ACID 1 MG TABLET (FP) ONE (09:56)
[2018-12-16] MEDS ORDERED: THIAMINE HCL 100 MG TABLET (FP) ONE (09:56)
[2018-12-16] MEDS ORDERED: MULTIVITAMINS (DAILY MVI) TABLET (FP) PO SCH (10:00)
[2018-12-16] MEDS ORDERED: THIAMINE HCL 100 MG TABLET (FP) PO SCH (10:00)
[2018-12-16] MEDS ORDERED: FOLIC ACID 1 MG TABLET (FP) PO SCH (10:00)
[2018-12-16] MEDS ORDERED: LIDOCAINE 5% TOPICAL PATCH TP SCH (10:15)
--- NOTE | 2018-12-16 11:10 | PN ---
Progress Note (short form) - Note Progress Note: Patient was seen at the bedside . According to patient he came in for high blood pressure and 'something in his eye' He has some type of a psych. issue but was evasive when asked about this. His admits to hx of Depression which started over 10 years ago when his mother . He was admitted to a psychiatric unit at this time.He does not recall meds, does not recall the last time he was seen by mental health. He also stated that recently his two friends suddenly and he does not do well with loss. Denies hx of suicidal attempts. He denies psychotic symptoms, denies suicidal/homicidal ideation. Denies ongong depressive symptoms, Labs significant for PCP. MS Awake, alert and fully oriented. Conversant and appropriate. His mood is neutral Auditory hallucination - none elicited or reported Delusional beliefs -none No suicidal/homicidal ideation- A/P Patient initial presentation may be associated with his drug use- PCP. Rec: Cleared for discharge
--- NOTE | 2018-12-16 11:26 | DS ---
Physical Exam: SUBJECTIVE: Patient seen and examined in the ED. He was ambulating around, in no acute distress. denies chest pain, denies shortness of breath. States he as a physical therapy appointment today and wants to go home. OBJECTIVE: patient has been placed on constant observation during hospital stay for PCP use. He was agitated in the ED and was given haldol and benzos. He is now calm , cooperative. Denies pain. No chest pain. Denies suicidal ideation. Cleared for d/c by psyche. Before d/c order was placed, patient left the ED, but was cleared for discharge by psyche. Vital Signs Period Temp Pulse Resp BP Sys/Freire Pulse Ox Last 24 Hr 97.5 F-98.8 F 70-88 17-18 140-165/83-115 99-100 PHYSICAL EXAM GENERAL: The patient is awake, alert, and fully oriented, in no acute distress. HEAD: Normal with no signs of trauma. EYES: PERRL, extraocular movements intact, sclera anicteric, conjunctiva clear. ENT: Ears normal, nares patent, oropharynx clear without exudates, moist mucous membranes. NECK: Trachea midline, full range of motion, supple. LUNGS: Breath sounds equal, clear to auscultation bilaterally, no wheezes, no crackles, no accessory muscle use. HEART: Regular rate and rhythm, S1, S2 without murmur, rub or gallop. ABDOMEN: obese soft abdomen + bowel sounds EXTREMITIES: dry NEUROLOGICAL: Normal speech, steady gait. SKIN: dry LABS Laboratory Results - last 24 hr 12/15/18 12/15/18 12/15/18 23:10 23:10 23:10 WBC 7.7 RBC 5.34 Hgb 15.1 Hct 46.2 MCV 86.5 MCH 28.3 MCHC 32.7 RDW 14.6 Plt Count 360 MPV 9.3 Absolute Neuts (auto) 4.9 Neutrophils % 63.9 Lymphocytes % 29.5 Monocytes % 4.2 Eosinophils % 1.7 Basophils % 0.7 Nucleated RBC % 0 Sodium 143 Potassium 3.5 Chloride 109 H Carbon Dioxide 27 Anion Gap 8 BUN 11.2 Creatinine 1.2 Est GFR (CKD-EPI)AfAm 82.96 Est GFR (CKD-EPI)NonAf 71.58 Random Glucose 135 H Calcium 9.2 Total Bilirubin 0.5 AST 40 H ALT 34 Alkaline Phosphatase 134 H Creatine Kinase Creatine Kinase Index CK-MB (CK-2) Troponin I Total Protein 7.5 Albumin 4.2 Urine Color Urine Appearance Urine pH Ur Specific [place] Urine Protein Urine Glucose (UA) Urine Ketones Urine Blood Urine Nitrite Urine Bilirubin Urine Urobilinogen Ur Leukocyte Esterase Salicylates < 1.7 L Opiates Screen Methadone Screen Acetaminophen Barbiturate Screen Phencyclidine Screen Ur Amphetamines Screen MDMA (Ecstasy) Screen Benzodiazepines Screen Cocaine Screen U Marijuana (THC) Screen Alcohol, Quantitative 12/15/18 12/15/18 12/16/18 23:10 23:10 04:01 WBC RBC Hgb Hct MCV MCH MCHC RDW Plt Count MPV Absolute Neuts (auto) Neutrophils % Lymphocytes % Monocytes % Eosinophils % Basophils % Nucleated RBC % Sodium Potassium Chloride Carbon Dioxide Anion Gap BUN Creatinine Est GFR (CKD-EPI)AfAm Est GFR (CKD-EPI)NonAf Random Glucose Calcium Total Bilirubin AST ALT Alkaline Phosphatase Creatine Kinase 395 H Creatine Kinase Index 0.3 CK-MB (CK-2) 1.2 Troponin I < 0.02 Total Protein Albumin Urine Color Yellow Urine Appearance Clear Urine pH 6.0 Ur Specific [place] 1.016 Urine Protein Negative Urine Glucose (UA) Negative Urine Ketones Trace H Urine Blood Negative Urine Nitrite Negative Urine Bilirubin Negative Urine Urobilinogen 0.2 Ur Leukocyte Esterase Negative Salicylates Opiates Screen Methadone Screen Acetaminophen <2.0 Barbiturate Screen Phencyclidine Screen Ur Amphetamines Screen MDMA (Ecstasy) Screen Benzodiazepines Screen Cocaine Screen U Marijuana (THC) Screen Alcohol, Quantitative < 3.0 12/16/18 12/16/18 04:01 04:15 WBC RBC Hgb Hct MCV MCH MCHC RDW Plt Count MPV Absolute Neuts (auto) Neutrophils % Lymphocytes % Monocytes % Eosinophils % Basophils % Nucleated RBC % Sodium Potassium Chloride Carbon Dioxide Anion Gap BUN Creatinine Est GFR (CKD-EPI)AfAm Est GFR (CKD-EPI)NonAf Random Glucose Calcium Total Bilirubin AST ALT Alkaline Phosphatase Creatine Kinase 312 H Creatine Kinase Index 0.3 CK-MB (CK-2) 1.2 Troponin I < 0.02 Total Protein Albumin Urine Color Urine Appearance Urine pH Ur Specific [place] Urine Protein Urine Glucose (UA) Urine Ketones Urine Blood Urine Nitrite Urine Bilirubin Urine Urobilinogen Ur Leukocyte Esterase Salicylates Opiates Screen Negative Methadone Screen Negative Acetaminophen Barbiturate Screen Negative Phencyclidine Screen Positive A* Ur Amphetamines Screen Negative MDMA (Ecstasy) Screen Negative Benzodiazepines Screen Negative Cocaine Screen Negative U Marijuana (THC) Screen Negative Alcohol, Quantitative HOSPITAL COURSE: Date of Admission:12/16/18 Date of Discharge: 12/16/18 Patient is a 48 year old male with a significant past medical history of bipolar depression. Came to the Ed on 12/16 after he was found to be agitated, tangential thoughts, diorganized and with flight of ideas. Not admitted for suicide ideation, but constant supervision for safety secondary to presentation. He was given Ativan and haldol to ease agitation with good effect. He was awake, alert and in no acute distress. he was ambulating, pleasant with no agitation. He refused banana bag, refused follow up help for drug use. Safety maintained during ED visit. No signs of withdrawal on exam. Speech clear, no headaches, no hallucinations no suicidal ideation. Hospital problem list: PCP intoxication. Was given haldol and ativan was added prn. patient was maintained safe in the ED and d/c home when he was no longer agitated. he denies any headaches, speech was clear and thought process was no longer disorganized. cleared by psyche for d/c History of bipolar depression On no home medications. Seen by psyche and cleared for d/c Repolarization changes on ekg troponins negative x 2, no chest pain, no shortness of breath. discharge home. refused IVs and referrals to psych as an outpatient. Minutes to complete discharge: 45 Discharge Summary Problems reviewed: Yes Reason For Visit: STSEGMENT CHANGES ON ELECTROCARDIOGRAPHY, Current Active Problems Mental health problem (Acute) Palpitations (Acute) ST segment changes on electrocardiogram (Acute) Condition: Improved - Instructions Disposition: AGAINST MEDICAL ADVICE - Home Medications Comprehensive Discharge Medication List: Ambulatory Orders Cane 1 each MC DAILY PRN #1 each 11/16/14 Methocarbamol [Robaxin -] 500 mg PO TID PRN #30 tablet 11/16/14 Cyclobenzaprine HCl [Flexeril -] 5 mg PO TID PRN #12 tablet 02/03/16 Folic Acid - 1 mg PO DAILY #30 tablet 12/16/18 Thiamine HCl [Vitamin B1 -] 100 mg PO DAILY #30 tablet 12/16/18 This patient is new to me today: Yes Date on this admission: 12/16/18 Emergency Visit: Yes ED Registration Date: 12/16/18 Care time: The patient presented to the Emergency Department on the above date and was hospitalized for further evaluation of their emergent condition. Critical Care patient: No - Discharge Referral Referred to [facility] No
[2018-12-16] MEDS ORDERED: LIDOCAINE PATCH REMOVAL MC SCH (22:00)
== END 2018-12-16 12:15 | disposition left against medical advice (07) | DRG 812 ==
LOC: JER 21:21 → JERBED 12-16 05:09 → OBSVTOIN 12-16 05:09
PROVIDERS: ADMIT Internal Medicine; ATTEND Nurse Practitioner Family
DX: T40.991A Poisoning by other psychodysleptics [hallucinogens], accidental (unintentional), initial encounter (principal); I10 Essential (primary) hypertension; R00.2 Palpitations; E78.5 Hyperlipidemia, unspecified; R44.1 Visual hallucinations; R45.1 Restlessness and agitation; M62.82 Rhabdomyolysis; R44.0 Auditory hallucinations; E66.9 Obesity, unspecified; Z68.38 Body mass index [BMI] 38.0-38.9, adult; F31.9 Bipolar disorder, unspecified
CPT/HCPCS: 36415; 71045-TC-FY; 80053; 80307; 81003; 82550; 82553; 84484; 85025; 93005; 93010; 99283-25; J7030

== ENCOUNTER 2018-12-28 08:18 | Emergency (ER) | payer OTHER ==
[2018-12-28 08:25] VITALS: BP 136/72; PULSE 89; TEMP 98.3; BMI 28.0
== END 2018-12-28 09:30 | disposition left against medical advice (07) ==
LOC: JER 08:18
DX: Z53.21 Procedure and treatment not carried out due to patient leaving prior to being seen by health care provider (principal)
CPT/HCPCS: 99281-25

== ENCOUNTER 2019-05-10 11:26 | Emergency (ER) | payer OTHER ==
[2019-05-10 11:37] VITALS: BP 160/100; PULSE 84; TEMP 97.9; BMI 38.0
--- NOTE | 2019-05-10 12:02 | PDOC ---
History of Present Illness - General Chief Complaint: Pain Stated Complaint: LFT FOOT INJURY Time Seen by Provider: 05/10/19 11:43 History Source: Patient - History of Present Illness Initial Comments: 05/10/19 11:56 Chief complaint: Foot injury Patient is a 49-year-old male with a history of schizophrenia, hypertension, hyperlipidemia who states that he hit his left foot against a rock around the beginning of March and also fell injuring his left knee. Patient has been going to physical therapy for his back pain but never had evaluation for this injury. Patient complaining of pain in the foot and also in the knee. Patient is ambulatory. Patient has no other complaints. GENERAL/CONSTITUTIONAL: No fever, weakness. dizziness HEAD, EYES, EARS, NOSE AND THROAT: No change in vision. No ear pain or discharge. No sore throat. CARDIOVASCULAR: No chest pain RESPIRATORY: No shortness of breath or cough GASTROINTESTINAL: No pain, nausea, vomiting, diarrhea or constipation GENITOURINARY: No dysuria MUSCULOSKELETAL: No neck or back pain, + left foot and knee SKIN: No rash NEUROLOGIC: No headache, vertigo, loss of consciousness, or loss of sensation. GENERAL: The patient is awake, alert, and fully oriented, in no acute distress. HEAD: Normal with no signs of trauma. EYES: Pupils equal, round and reactive to light, sclera anicteric, conjunctiva clear. ENT: pharynx: no erythema, no exudate, uvula midline NECK: supple CHEST: clear, nontender, rr ABD: soft, nontender BACK: no tenderness or signs of injury EXTREMITIES: Left foot: Long toenails, no gross swelling, no deformity. Minimal medial tenderness. No signs of infection. Good range of motion, neurovascular intact. Knee with good range of motion, no swelling or deformity , no signs of infection. Rest of exam negative, rest of extremities, normal range of motion, no edema. NEUROLOGICAL: Normal speech, normal gait. SKIN: Warm, Dry Past History - Past Medical History Allergies/Adverse Reactions: Allergies Allergy/AdvReac Type Severity Reaction Status Date / Time lactose Allergy Verified 05/10/19 11:32 Home Medications: Ambulatory Orders Cane 1 each MC DAILY PRN #1 each 11/16/14 Methocarbamol [Robaxin -] 500 mg PO TID PRN #30 tablet 11/16/14 Cardiac Disorders: Yes (palpitations) COPD: No Diabetes: No HTN: Yes Hypercholesterolemia: Yes Psychiatric Problems: Yes (bipolar, depression) - Immunization History Immunization Up to Date: No - Psycho Social/Smoking Cessation Hx Smoking History: Unknown if ever smoked Have you smoked in the past 12 months: No Number of Cigarettes Smoked Daily: 1 Hx Alcohol Use: No Drug/Substance Use Hx: No Substance Use Type: None *Physical Exam - Vital Signs Last Vital Signs Temp Pulse Resp BP Pulse Ox 97.9 F 84 19 160/100 99 05/10/19 11:35 05/10/19 11:35 05/10/19 11:35 05/10/19 11:35 05/10/19 11:35 Medical Decision Making - Medical Decision Making 05/10/19 12:25 49-year-old male with history of bipolar, schizophrenia, hypertension and hyperlipidemia with injury to left foot and knee which is almost 2 months old. Patient did not get x-rays. 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 Patient is complaining of pain to both. Patient is ambulatory. No concerning clinical findings. Patient will get x-rays. Patient taking meloxicam for pain X-rays of knee and foot showed no acute injury/fracture. No indication for splinting as this is almost 2 months old. Discussed issues, findings, results, applicable medications and treatments and follow-up. All these were understood and all questions were answered 05/10/19 14:20 Discharge - Discharge Information Problems reviewed: Yes Clinical Impression/Diagnosis: Injury, foot Qualifiers: Encounter type: initial encounter Laterality: left Qualified Code(s): S99.922A - Unspecified injury of left foot, initial encounter Knee injury Qualifiers: Encounter type: initial encounter Laterality: left Qualified Code(s): S89.92XA - Unspecified injury of left lower leg, initial encounter Condition: Stable Disposition: HOME - Admission No - Follow up/Referral Referrals: Jessica Magdaleno [Primary Care Provider] - Vincent Barrow DO [Staff Physician] - - Patient Discharge Instructions Additional Instructions: You can continue the meloxicam as prescribed by your doctor Follow-up with either your doctor that has you going to physical therapy or the orthopedist listed here - Post Discharge Activity
== END 2019-05-10 13:15 | disposition home or self-care (01) ==
LOC: JERFT 11:26
DX: S89.82XA Other specified injuries of left lower leg, initial encounter (principal); S99.822A Other specified injuries of left foot, initial encounter; W19.XXXA Unspecified fall, initial encounter; Y93.89 Activity, other specified; Y92.89 Other specified places as the place of occurrence of the external cause; Y99.8 Other external cause status; I10 Essential (primary) hypertension; E78.5 Hyperlipidemia, unspecified; F20.9 Schizophrenia, unspecified; F31.9 Bipolar disorder, unspecified
CPT/HCPCS: 73562-TC-LT-FY; 73630-TC-LT; 99283-25

== ENCOUNTER 2019-05-24 10:38 | Emergency (ER) | payer OTHER ==
[2019-05-24] MEDS ORDERED: KETOROLAC TROMETHAMINE 60 MG/2 ML VIAL IM ONE (11:32)
[2019-05-24] MEDS ORDERED: CYCLOBENZAPRINE HCL 10 MG TABLET (FP) PO ONE (11:32)
[2019-05-24 11:34] VITALS: BP 170/101; PULSE 79; TEMP 98; BMI 38.0
--- NOTE | 2019-05-24 11:39 | PDOC ---
History of Present Illness - General Chief Complaint: Back Pain Stated Complaint: BACK PAIN Time Seen by Provider: 05/24/19 11:26 History Source: Patient Exam Limitations: No Limitations - History of Present Illness Initial Comments: 05/24/19 11:34 49y M hx of schizophrenia, htn, hl, chronic back pain (multiple herniated disks L1,2,L4,5 from a prior acccident, that he follows with pain) presents with worsening back pain. Patient states that the pain is lower back that radiates to his R foot it is worse when he is moving it is so bad now he can not walk without significant pain. Similar in nature to prior herniated disc and no change in nature of pain. Patient states that he is missed several appointments with his pain doctor due to family issues and he is run out of his meloxicam that usually alleviates his pain. The patient denies any focal numbness, tingling, weakness, fever, chills, urinary or bowel incontinence. Patient denies any recent history of trauma or falls. He has no other symptoms including chest pain, shortness of breath, palpitations, nausea, vomiting. ROS: Constitutional - no reported Fever, Chills, Respiratory: no reported cough, sob, Cardiac: no reported chest pain, palpitations, light headedness, Abd/GI: no reported abd pain, nausea, vomiting, b : no reported frequency, discharge Musculskelatal - +back pain no reported joint swelling skin - no reported bruising, erythema, rash neurological: no reported headache, numbness, focal weakness, tingling, ataxia, hematologic: no reported easy bruising, easy bleeding Exam GENERAL: The patient is awake, alert, and fully oriented, Nontoxic - in no acute distress. HEAD: Normocephalic, atraumatic. EYES: extraocular movements intact, sclera anicteric, conjunctiva clear. ENT: Normal voice, Moist mucous membranes. NECK: Normal range of motion, supple LUNGS: Breath sounds equal, clear to auscultation bilaterally. No wheezes, no rhonchi, no rales. HEART: Regular rate and rhythm, normal S1 and S2 without murmur, rub or gallop. BACK: Mild diffuse low back tenderness in the lumbar region, no focal midline bony tenderness no step-offs, erythema, induration, fluctuance. ABDOMEN: Soft, nontender, No guarding, no rebound. No CVA tenderness EXTREMITIES: Normal range of motion, no edema. NEUROLOGICAL: No facial assymetry, Normal speech, hip flexion extension foot plantar flexion/extension is symmetric, sensation symmetric bilaterally in lower extremities PSYCH: Normal mood, normal affect. SKIN: Warm, Dry, normal turgor, Chronic back pain sciatica No red flags suggestive of cord compression or neurologic symptoms we will give the patient Toradol and Flexeril Will reassess Past History - Past Medical History Allergies/Adverse Reactions: Allergies Allergy/AdvReac Type Severity Reaction Status Date / Time lactose Allergy Verified 05/24/19 11:29 Home Medications: Ambulatory Orders Meloxicam 7.5 mg PO DAILY #14 tablet 05/24/19 Cardiac Disorders: Yes (palpitations) COPD: No Diabetes: No HTN: Yes Hypercholesterolemia: Yes Psychiatric Problems: Yes (bipolar, depression) - Immunization History Immunization Up to Date: No - Psycho Social/Smoking Cessation Hx Smoking History: Unknown if ever smoked Have you smoked in the past 12 months: No Number of Cigarettes Smoked Daily: 1 Hx Alcohol Use: No Drug/Substance Use Hx: No Substance Use Type: None *Physical Exam - Vital Signs Last Vital Signs Temp Pulse Resp BP Pulse Ox 98 F 79 20 170/101 H 100 05/24/19 11:31 05/24/19 11:31 05/24/19 11:31 05/24/19 11:31 05/24/19 11:31 Medical Decision Making - Medical Decision Making 05/24/19 11:59 pt feeling better ambulating will dc pt with rx of meloxiam pt has an appt with his pain management doctor tomorrow return oneil devi discussed I discussed the physical exam findings, ancillary test results and final diagnoses with the patient. I answered all of the patient's questions. The patient was satisfied with the care received and felt comfortable with the discharge plan and treatment plan. The patient will call their primary care physician within 24 hours to arrange follow-up and will return to the Emergency Department with any new, persistent or worsening symptoms. Discharge - Discharge Information Problems reviewed: Yes Clinical Impression/Diagnosis: Back pain at L4-L5 level Hypertension Qualifiers: Hypertension type: essential hypertension Qualified Code(s): I10 - Essential (primary) hypertension Condition: Improved Disposition: HOME - Admission No - Additional Discharge Information Prescriptions: Meloxicam 7.5 mg PO DAILY #14 tablet - Follow up/Referral Referrals: Jessica Magdaleno [Primary Care Provider] - - Patient Discharge Instructions Patient Printed Discharge Instructions: DI for Back Pain With Sciatica Additional Instructions: Return to the emergency department immediately with ANY new, persistent or worsening symptoms including numbness, tingling, weakness, fevers or any other concerns. Take your meloxicam with food as prescribed. Apply heat to your sore muscles. You MUST call and follow up with your doctor tomorrow for further evaluation of your symptoms. Your emergency department visit is not complete without a followup with your doctor for reevaluation.. Results were discussed with you. Please make sure your doctor reviews the results of your emergency evaluation. Print Language: ARMENIAN - Post Discharge Activity
[2019-05-24] MEDS ORDERED: CYCLOBENZAPRINE HCL 10 MG TABLET (FP) ONE (11:45)
[2019-05-24] MEDS ORDERED: KETOROLAC TROMETHAMINE 60 MG/2 ML VIAL ONE (11:45)
== END 2019-05-24 12:03 | disposition home or self-care (01) ==
LOC: JER 10:38
PROC: 3E0233Z Introduction of Anti-inflammatory into Muscle, Percutaneous Approach (ICD-10-PCS; principal; 2019-05-24)
DX: M54.42 Lumbago with sciatica, left side (principal); I10 Essential (primary) hypertension; E78.5 Hyperlipidemia, unspecified; F20.9 Schizophrenia, unspecified; E73.9 Lactose intolerance, unspecified
CPT/HCPCS: 99284-25

== ENCOUNTER 2019-11-27 11:08 | Emergency (ER) | payer OTHER ==
[2019-11-27 11:17] VITALS: PULSE 94; TEMP 97.9; BMI 39.5
--- NOTE | 2019-11-27 11:32 | PDOC ---
Rapid Medical Evaluation Time Seen by Provider: 11/27/19 11:13 Medical Evaluation: Allergies Allergy/AdvReac Type Severity Reaction Status Date / Time lactose Allergy Verified 11/27/19 11:17 Vital Signs Temp Pulse Resp BP Pulse Ox 97.9 F 94 H 18 168/96 99 11/27/19 11:15 11/27/19 11:15 11/27/19 11:15 11/27/19 11:15 11/27/19 11:15 11/27/19 11:18 I have performed a brief in-person evaluation of this patient The patient presents with a chief complaint of:chest pain. H/o HTN and DM Pertinent physical exam findings:well ap, stable I have ordered the following:ekg/cxr/labs The patient will proceed to the ED for further evaluation Discharge Disposition - Diagnosis Chest pain Qualifiers: Chest pain type: unspecified Qualified Code(s): R07.9 - Chest pain, unspecified - Referrals - Patient Instructions - Post Discharge Activity
--- NOTE | 2019-11-27 11:39 | PDOC ---
History of Present Illness - General Chief Complaint: Blood Pressure Problem Stated Complaint: HYPERTENSION Time Seen by Provider: 11/27/19 11:13 - History of Present Illness Initial Comments: 49 YOM h/o htn and prediabetes presents for chest pain, abdominal pain, and elevated blood pressure. Patient reports that he has had chronic back pain 2/2 to disc herniation for which he sees a pain specialist but reports that pain specialist recommended he be seen in ED for his elevated blood pressure and to get COVID test. Also concerned about pre diabetes and is requesting and A1C. Denies fever, chills, N/V/D, travel or recent sick contacts. 11/27/19 13:23 Past History - Medical History Allergies/Adverse Reactions: Allergies Allergy/AdvReac Type Severity Reaction Status Date / Time lactose Allergy Verified 11/27/19 11:17 Home Medications: Ambulatory Orders Meloxicam 7.5 mg PO DAILY #14 tablet 05/24/19 Amlodipine Besylate 10 mg PO DAILY 11/08/19 Biofreeze PRN 11/09/19 Cardiac Disorders: Yes (palpitations) COPD: No Diabetes: Yes (pre?) HTN: Yes Hypercholesterolemia: Yes Psychiatric Problems: Yes (bipolar, depression) - Immunization History Immunization Up to Date: No - Psycho-Social/Smoking History Smoking History: Never smoked Have you smoked in the past 12 months: No Number of Cigarettes Smoked Daily: 1 - Substance Abuse Hx (Audit-C & DAST Scrn) How often the patient has a drink containing alcohol: Never Score: In Men: 4 or > Positive; In Women: 3 or > Positive: 0 Screen Result (Pos requires Nsg. Audit-10AR): Negative In the last yr the pt used illegal drug/Rx for NonMed reason: No Score: Yes response is considered Positive: 0 Screen Result (Positive result requires Nsg. DAST-10): Negative Review of Systems - Review of Systems Constitutional: Yes: See HPI HEENTM: Yes: See HPI Respiratory: Yes: See HPI Cardiac (ROS): Yes: See HPI ABD/GI: Yes: See HPI : Yes: See HPI Musculoskeletal: Yes: See HPI Integumentary: Yes: See HPI Neurological: Yes: See HPI Endocrine: Yes: See HPI Hematologic/Lymphatic: Yes: See HPI *Physical Exam - Vital Signs Last Vital Signs Temp Pulse Resp BP Pulse Ox 97.9 F 94 H 18 168/96 99 11/27/19 11:15 11/27/19 11:15 11/27/19 11:15 11/27/19 11:15 11/27/19 11:15 - Physical Exam General Appearance: Yes: Nourished, Appropriately Dressed HEENT: positive: EOMI, ERNA, Normal ENT Inspection, Normal Voice Neck: positive: Trachea midline, Normal Thyroid Respiratory/Chest: positive: Lungs Clear, Normal Breath Sounds Cardiovascular: positive: Regular Rhythm, Regular Rate, S1, S2 Gastrointestinal/Abdominal: positive: Normal Bowel Sounds, Tender, Flat, Soft Integumentary: positive: Normal Color, Dry, Warm ED Treatment Course - LABORATORY CBC & Chemistry Diagram: 11/27/19 11:59 11/27/19 11:59 Medical Decision Making - Medical Decision Making 49 YO< h/o htn and prediabetes presents with chest and abdominal pain and elevated BP - vitals wnl - exam reveals some TTP in abdomen - CBC, BMP, A1C, CXR, EKG, lactate, troponin reassess: ekg shows Sinus Rythm, Regular Rate. labs and imagining wnl. Will dc patient. 11/27/19 13:39 11/27/19 13:39 Discharge - Discharge Information Problems reviewed: Yes Clinical Impression/Diagnosis: Hypertension Chest pain Qualifiers: Chest pain type: unspecified Qualified Code(s): R07.9 - Chest pain, unspecified - Admission No - Follow up/Referral Referrals: Jessica Magdaleno [Primary Care Provider] - - Patient Discharge Instructions Patient Printed Discharge Instructions: DI for High Blood Pressure Additional Instructions: You were seen in the emergency department for chest and abdominal pain and high blood pressure. You received EKG, chest x ray and labs, all of which were unremarkable. You were considered medically stable and safe to return home. Please follow up with your primary care provider regarding your visit to the emergency department within one week. Please return to the emergency department if you experience a worsening of your condition, trouble breathing, dizziness, lightheadedness, changes in sensation or strength, nausea or vomiting, changing or worsening symptoms. - Post Discharge Activity
[2019-11-27] MEDS ORDERED: FAMOTIDINE 20 MG/50 ML IVPB 20 MG/50 ML MG IVPB ONE (12:05)
[2019-11-27] MEDS ORDERED: MAG HYDROX/AL HYDROX/SIMETH 30 ML UNIT-DOSE CUP PO ONE (12:05)
[2019-11-27] MEDS ORDERED: ACETAMINOPHEN 500 MG TABLET (FP) PO ONE (12:07)
[2019-11-27] MEDS ORDERED: FAMOTIDINE 20 MG TABLET PO ONE (12:09)
[2019-11-27 12:10] LABS: BASO % 0.5 % (0-2.0); HEMATOCRIT 46.7 % (35.4-49); HEMOGLOBIN 15.9 GM/dL (11.7-16.9); LYMPH % 26.5 % (8-40); MCH 28.9 pg (25.7-33.7); MEAN CELL VOLUME 85.1 fl (80-96); MEAN PLT VOLUME 8.8 fl (7.5-11.1); MONO % 5.5 % (3.8-10.2); NEUT % 66.5 % (42.8-82.8); PLATELET COUNT 363 K/MM3 (134-434); RBC 5.49 M/mm3 (4.00-5.60); RDW 13.4 % (11.9-15.9); WHITE BLOOD COUNT 6.1 K/mm3 (4.0-10.0)
[2019-11-27] MEDS ORDERED: FAMOTIDINE 20 MG TABLET ONE (12:12)
[2019-11-27] MEDS ORDERED: ACETAMINOPHEN 325 MG TABLET (FP) ONE (12:12)
[2019-11-27] MEDS ORDERED: MAG HYDROX/AL HYDROX/SIMETH 30 ML UNIT-DOSE CUP ONE (12:13)
--- OUTSIDE RECORDS SUMMARY | 2019-11-27 12:13 | XMS ---
:1970 Author Organization [facility] Care Team Providers Name Role Phone Rodolfo Bose Mai Unavailable [phone] Joon Bosei Unavailable [phone] Yassine Unavailable [phone] Erosa Unavailable Erosa Unavailable Perretta Unavailable [phone] Perretta Unavailable [phone] Routen Unavailable Unavailable Routen Unavailable Unavailable ED STAFF PHYSICIAN Unavailable Unavailable Aszalos, Sandra Unavailable Unavailable Aszalos, Sandra Unavailable Unavailable Aszalos, Sandra Unavailable Unavailable Aszalos, Sandra Unavailable Unavailable Aszalos, Sandra Unavailable Unavailable Aszalos, Sandra Unavailable Unavailable Aszalos, Sandra Unavailable Unavailable Aszalos, Sandra Unavailable Unavailable Aszalos, Sandra Unavailable Unavailable Melissa Tyler MD Unavailable Unavailable Melissa Tyler MD Unavailable Unavailable Melissa Tyler MD Unavailable Unavailable Melissa Tyler MD Unavailable Unavailable Melissa Tyler MD Unavailable Unavailable Melissa Tyler MD Unavailable Unavailable Melissa Tyler MD Unavailable Unavailable Melissa Tyler MD Unavailable Unavailable Melissa Tyler MD Unavailable Unavailable Melissa Tyler MD Unavailable Unavailable Melissa Tyler MD Unavailable Unavailable Melissa Tyler MD Unavailable Unavailable Melissa Tyler MD Unavailable Unavailable Melissa Tyler MD Unavailable Unavailable Melissa Tyler MD Unavailable Unavailable Mattie Unavailable [phone] Mattie Unavailable [phone] Mattie Unavailable [phone] Re-disclosure Warning The records that you are about to access may contain information from federally- assisted alcohol or drug abuse programs. If such information is present, then the following federally mandated warning applies: This information has been disclosed to you from records protected by federal confidentiality rules (42 CFR part 2). The federal rules prohibit you from making any further disclosure of this information unless further disclosure is expressly permitted by the written consent of the person to whom it pertains or as otherwise permitted by 42 CFR part 2. A general authorization for the release of medical or other information is NOT sufficient for this purpose. The Federal rules restrict any use of the information to criminally investigate or prosecute any alcohol or drug abuse patient.The records that you are about to access may contain highly sensitive health information, the redisclosure of which is protected by Article 27-F of the [facility] Public Health law. If you continue you may haveaccess to information: Regarding HIV / AIDS; Provided by facilities licensed or operated by the [facility] Office of Mental Health; or Provided by the [facility] Office for People With Developmental Disabilities. If such information is present, then the following [facility] mandated warning applies: This information has been disclosed to you from confidential records which are protected by state law. State law prohibits you from making any further disclosure of this information without the specific written consent of the person to whom it pertains, or as otherwise permitted by law. Any unauthorized further disclosure in violation of state law may result in a fine or usp sentence or both. A general authorization for the release of medical or other information is NOT sufficient authorization for further disclosure. Allergies and Adverse Reactions Type Description Substance Reaction Status Data Source(s ) [facility] Food allergy No Known Food No Known Food [facility] Allergies Allergies Medical Center Propensity to Propensity to Propensity to NEXTG EN ([facility] adverse reactions adverse reactions adverse reactions [facility] (disorder) (disorder) (disorder) Center) Family History Family Member Family Member Family Member Date of Description Data Source(s) Name Gender Status Status Unknown Male Diagnosis 04/05/2016 NEXTGEN ([facility] 12:00:00 [facility]) Encounters Encounter Providers Location Date Indications Data Source(s ) Attender: Blayne 11/14/2019 MEDGEN ([facility] [place] 12:00:00 AM EDT Medical, ) Office Attender: Balyne Bermudez 11/14/2019 12:00:00 AM EDT [facility] Attender: Blayne Bermudez 10/30/2019 12:00:00 AM EDT [facility] Emergency Attender: STAFF ED STAFF H 10/20/2019 09:16:00 AM [facility] PHYSICIANReferrer: STAFF ED EDT - 10/20/2019 Medical Center STAFF PHYSICIAN 01:52:00 PM EDT [facility]. [facility] 04[facility]28:[facility]EXT[facility] ([facility] PM EDT - 08/20/2019 [facility] 04:28:00 PM EDT Center) [facility] [place] [facility] 08[facility]16[facility] [place] [facility] Attender: [facility] 08/15/2019 05:19:00 NEXTGEN ([facility] PM EDT - 08/15/2019 [facility] Medical 05:19:00 PM EDT Center) Attender: [facility] 11/02/2018 02:39:00 NEXTGEN ([facility] PM EDT - 11/02/2018 [facility] 02:39:00 PM EDT Center) Outpatient 11/01/2018 06:48:00 [facility] EDT Medical Center Outpatient 11/01/2018 [facility] 04/19/2018 01:36:00 NEXTGEN ([facility] PM EST - 04/19/2018 [facility] 01:36:00 PM EST Center) Attender: [facility] 03/08/2018 01:21:00 NEXTGEN ([facility] PM EST - 03/08/2018 [facility] 01:21:00 PM EST Center) Attender: [place] 01/11/2018 10:54:00 NEXTGEN ([facility] AM EDT - 01/11/2018 [facility] 10:54:00 AM EDT Center) Attender: [place] 12/02/2017 02:07:00 NEXTGEN ([facility] PM EDT - 12/02/2017 [facility] 02:07:00 PM EDT Center) Attender: [facility] 11/08/2017 11:23:00 NEXTGEN ([facility] AM EDT - 11/08/2017 [facility] 11:23:00 AM EDT Center) Attender: [facility] 10/26/2016 01:20:00 NEXTGEN ([facility] PM EDT - 10/26/2016 [facility] Medical GarciaAttender: 01:20:00 PM EDT Cent er) [place] Attender: [facility] 06/30/2016 10:53:00 NEXTGEN ([facility] AM EDT - 06/30/2016 [facility] 10:53:00 AM EDT Center) Attender: [facility] 04/21/2016 01:39:00 NEXTGEN ([facility] PM EST - 04/21/2016 [facility] 01:39:00 PM EST Center) Attender: [facility] 04/05/2016 09:50:00 NEXTGEN ([facility] AM EST - 04/05/2016 [facility] Medical GarciaAttender: 09:50:00 AM EST Cent er) [place] Immunizations Vaccine Date Status Description Data Source(s) Tdap 01/11/2018 12:00:00 AM completed Tdap NEXTG EN ([facility] EDT Center) Source: New Immunization Record New in 2011. 01/11/2018 12:00:00 completed Influenza, Injectable , NEXTGEN ([facility]4 AM EDT Quadrivalent ([address] [facility] or older) Center) Note: patient refused ; Source: New Immu nization Record New in 2011. 04/05/2016 12:00:00 completed Influenza virus NEXTG EN ([facility] IIV4 AM EST vaccine, injectable, [facility] quadrivalent, [facility]) virus, preservative free, 3 years or older Fluarix Quad [id number] Source: New Immunization Record Medications Medication Brand Start Product Dose Route Administrative Pharmacy caitlin Indications Reaction Description Data Name Date Form Instructions Instructions Source(s) tizanidine TIZANI 11/13/ TABLET 60 complet TIZAN IDINE MEDGEN (St 2 MG Oral DINE:2019 ed Juan's Tablet 68452 12:00: Medical, TIZANIDINE: 00 AM PC) [id number] EDT meloxicam MELOXI 10/29/ TABLET 30 complet MELOXI CAM MEDGEN (St 7.5 MG Oral CAM:2019 ed Juan's Tablet 1486 12:00: Medical, MELOXICAM:3 00 AM PC) [id number] EDT EMOLLIENTS, 10/29/ CREAM 1 complet EMOLLIE NTS, MEDGEN (St TOPICAL:2019 ed TOPICAL Juan' s 176 12:00: Medical, 00 AM PC) EDT EMOLLIENTS, 10/29/ CREAM 1 complet EMOLLIE NTS, MEDGEN (St TOPICAL:2019 ed TOPICAL Juan' s 176 12:00: Medical, 00 AM PC) EDT meloxicam MELOXI 10/29/ TABLET 30 complet MELOXI CAM MEDGEN (St 7.5 MG Oral CAM:2019 ed Juan's Tablet 1486 12:00: Medical, MELOXICAM:3 00 AM PC) [id number] EDT Omeprazole omepra ORAL active take 1 N EXTGEN 20 MG zole 2018 {caps capsule by (Saint Delayed 20 mg 12:00: ule} oral route [facility]ph[facility] Release capsul 00 AM every day Medi tsering Oral e,el EDT before a Center) Capsule yed meal omeprazole releas 20 mg e capsule,del ayed release Chlorthalid chlort ORAL active take 1 NEXTGEN one 25 MG halido 2018 {tbl} tablet by (S aint Oral Tablet ne 25 12:00: oral route Donnei chlorthalid mg 00 AM every day Me dical one 25 mg tablet EDT Center) tablet Amlodipine amlodi ORAL active take 1 N EXTGEN 10 MG Oral pine 2018 {tbl} tablet by (Sa int Tablet 10 mg 12:00: oral route Zach phs amlodipine tablet 00 AM every day M edical 10 mg EDT Center) tablet atorvastati atorva .00 ORAL active take 1 NEXTGEN n 40 MG statin 2017 {tbl} tablet by (Francisco nt Oral Tablet 40 mg 12:00: oral route Donnie atorvastati tablet 00 AM every day Medical n 40 mg EDT Center) tablet back brace back one back N EXTGEN brace 2016 brace for (Saint 12:00: lumbar Donnie 00 AM support Medical EDT ICD: m51.9 Center) Cyclobenzap cyclob ORAL active take 1 NEXTGEN rine enzapr 2017 {tbl} tablet by ([facility] hydrochlori ine 10 12:00: oral rout e Donnie de 10 MG mg 00 AM every day Medic al Oral Tablet tablet EDT Center ) cyclobenzap rine 10 mg tablet Amlodipine amLODI complet Bebe t 10 MG Oral [place] ed Donnie Tablet 10 mg Medical amLODIPine Tablet Center 10 mg Tablet toradol complet [facility] ed Donnie : 1 tablet Medical q 6 hours Center prn for pain Chlorthalid chlort complet [place] nt one 25 MG halido ed Donnie Oral Tablet ne 25 Medical chlorthalid mg Center one 25 mg Tablet Tablet atorvastati atorva complet [place] nt n 40 MG statin ed Donnie Oral Tablet 40 mg Medical atorvastati Tablet Center n 40 mg Tablet Omeprazole omepra complet Bebe t 20 MG zole ed Donnie Delayed 20 mg Medical Release capsul Center Oral e,el Capsule yed omeprazole releas 20 mg e(DR/E capsule,del C) ayed release(DR/ EC) meloxicam meloxi complet Saint 7.5 MG Oral cam ed Donnie Tablet 7.5 mg Medical meloxicam Tablet Center 7.5 mg Tablet meloxicam meloxi complet Saint 7.5 MG Oral cam ed Donnie Tablet 7.5 mg Medical meloxicam Tablet Center 7.5 mg Tablet Naproxen naprox 1 complet Saint 500 MG Oral en 500 ed Petros s Tablet mg Medical naproxen Tablet Center 500 mg Direct TabletDirec ions: tions: 1 1 tablet oral tablet every oral twelve every hours PRN twelve pain hours PRN pain Methocarbam methoc 1 complet [place] nt ol 500 MG arbamo ed Donnie Oral Tablet l 500 Medical methocarbam mg Center ol 500 mg Tablet TabletDirec Direct tions: 1 ions: tablet oral 1 every tablet twelve oral hours PRN every pain twelve hours PRN pain Amlodipine amLODI complet Bebe t 10 MG Oral [place] ed Donnie Tablet 10 mg Medical amLODIPine Tablet Center 10 mg Tablet Chlorthalid chlort complet [place] nt one 25 MG halido ed Donnie Oral Tablet ne 25 Medical chlorthalid mg Center one 25 mg Tablet Tablet ketorolac complet Saint 10 mg ed Donnie Tablet Medical Center atorvastati atorva complet [place] nt n 40 MG statin ed Donnie Oral Tablet 40 mg Medical atorvastati Tablet Center n 40 mg Tablet Amlodipine amLODI 1 complet Bebe t 10 MG Oral [place] ed Donnie Tablet 10 mg Medical amLODIPine Tablet Center 10 mg , Tablet, Ordere Ordered By: d By: Tino Ramirez MDDirection , s: 1 tablet MDDire oral daily ctions : 1 tablet oral daily toradolDire complet Saint ctions: 1 ed Donnie tablet q 6 Medical hours prn Center for pain Methocarbam methoc 1 complet [place] nt ol 500 MG arbamo ed Donnie Oral Tablet l 500 Medical methocarbam mg Center ol 500 mg Tablet Tablet, , Ordered By: Kaila velasquez By: Elsa Philippe FNPDirectjosé morrow ns: 1 Wickha tablet oral m, every FNPDir twelve ection hours PRN s: 1 pain tablet oral every twelve hours PRN pain Naproxen naprox 1 complet Saint 500 MG Oral en 500 ed Petros s Tablet mg Medical naproxen Tablet Center 500 mg , Tablet, Ordere Ordered By: d By: odalys Gomez FNPDirectio Wickha ns: 1 m, tablet oral FNPDir every ection twelve s: 1 hours PRN tablet pain oral every twelve hours PRN pain Omeprazole omepra complet Bebe t 20 MG zole ed Donnie Delayed 20 mg Medical Release capsul Center Oral e,el Capsule yed omeprazole releas 20 mg e(DR/E capsule,del C) ayed release(DR/ EC) toradol complet [facility] Directions ed Donnie : 1 tablet Medical q 6 hours Center prn for pain Insurance Providers Payer name Policy type Policy ID Covered Covered alliance party's Policy P samy / Coverage alliance party ID relationship to Matthew Inf ormation type matthew MVP MEDICAID [id number] O MEDICAID OF [id number] 1 [id number] [place] MVP/HHP O [id number] 01 [id number] MVP/HHP [id number] self [id number] MVP [place] [id number] [place] [id number] HMO MEDICAID [id number] SP [id number] [place] [id number] S [id number] Vision MKD [place] [facility] [id number] S [id number] 1 Options MKD Dental [id number] S [id number] G-1 [employer] MKD Medicaid [id number] S [id number] Regular Clinic Visit [facility] [id number] S [id number] 1 S Medicaid Problems, Conditions, and Diagnoses Code Display Name Description Problem Type Effective Data Sour ce(s) Dates M79.18 MYALGIA, OTHER MYALGIA, OTHER Problem 11/14/2019 MEDGEN ([facility] ) M47.896 Other spondylosis, OTHER Problem 10/30/2019 MEDGEN (St lumbar region SPONDYLOSIS, 12:00:00 AM [facility] EDT Medical, ) M47.896 Other spondylosis, OTHER Problem 10/30/2019 MEDGEN (St lumbar region SPONDYLOSIS, 12:00:00 AM [facility] EDT Medical, ) R40.2410 [place] coma scale TORSTEN COMA Diagnosis 10/20/2019 Bebe t Donnie score 13-15, SCALE SCORE 09:16:00 AM Medical Ce nter unspecified time 13-15, EDT UNSPECIFIED TIME I10 Essential ESSENTIAL Diagnosis 10/20/2019 [facility] (primary) (PRIMARY) 09:16:00 AM Medical Cente r hypertension HYPERTENSION EDT M54.9 Dorsalgia, DORSALGIA, Diagnosis 10/20/2019 [facility] unspecified UNSPECIFIED 09:16:[address] EDT Surgeries/Procedures Procedure Description Date Indications Data Source(s) Documentation of current 11/14/2019 MED GEN ([facility] medications (procedure) 12:00:00 AM EDT Kris reyes, ELIZABETH) Documentation of current 11/14/2019 MED GEN ([facility] medications (procedure) 12:00:00 AM EDT Kris reyes, ) OFFICE OUTPATIENT VISIT 11/14/2019 MEDG EN ([facility] 15 MINUTES 12:00:00 [place] [facility] [place] INJECTION SINGLE/CULINARY DIRECTOR 11/14/2019 MEDGEN ([facility] TRIGGER POINT 1/2 MUSCLES 12:00:00 [place] [facility] [place] Documentation of current 10/30/2019 MED GEN ([facility] medications (procedure) 12:00:00 AM EDT [facility], ) Documentation of current 10/30/2019 MED GEN (Jerry's medications (procedure) 12:00:00 AM EDT [facility], ) Documentation of current 10/30/2019 MED GEN (Jerry's medications (procedure) 12:00:00 AM EDT [facility], ) Documentation of current 10/30/2019 MED GEN (Jerry's medications (procedure) 12:00:00 AM EDT [facility], ) Documentation of current 10/30/2019 MED GEN (Jerry's medications (procedure) 12:00:00 AM EDT [facility], ) Documentation of current 10/30/2019 MED GEN (Jerry's medications (procedure) 12:00:[address] [facility]) OFFICE OUTPATIENT VISIT 10/30/2019 MEDG EN ([facility] 25 MINUTES 12:00:00 AM [facility] [place] Documentation of current 10/30/2019 MED GEN (Jerry's medications (procedure) 12:00:00 AM EDT [facility], ) Documentation of current 10/30/2019 MED GEN (Jerry's medications (procedure) 12:00:00 AM EDT [facility], ) OFFICE OUTPATIENT VISIT 10/30/2019 MEDG EN ([facility] 25 MINUTES 12:00:00 AM [facility]) Results ID Date Data Source [id number] 11/06/2019 10:50:00 AM EDT [facility] Name Value Range Interpretation Description Data Sup porting Code Source(s) Document(s ) SARS [facility] coronavirus 2 RNA This lab was ordered by [facility] and reported by [facility]. ID Date Data Source Urinalysis.[id number] 10/20/2019 12:19:[address] [facility] 0 Name Value Range Interpretation Description Data Sup porting Code Source(s) Document(s ) Color of Urine YELLOW <content Saint styleCode="[facility] Donnie d">Color, Medical Urine Center </content>YELL OW <content styleCode="Lilliam lics"> (YELLOW )</content> UNK CLEAR <content Saint styleCode="[facility] Donnie d">Urine Medical Clarity Center </content>OPAL R <content styleCode="Lilliam lics"> (CLEAR )</content> Ketones NEGATIVE <content Saint [Mass/volume] styleCode="[facility] Donnie in Urine by d">Urine Medical Test strip Ketone Center </content>NEGA TIVE MG/DL<content styleCode="Lilliam lics"> (NEGATIVE MG/DL)</conten t> Specific 1.015-1.02 <content Saint gravity of 5 styleCode="[facility] Urine by Test d">Urine Medical strip Specific Center [place] </content>1.01 5 <content styleCode="Lilliam lics"> (1.015-1.025 )</content> Hemoglobin NEGATIVE <content Saint [Presence] in styleCode="Dean Morrells Urine by Test d">Urine Blood Medical strip </content>NEGA Center TIVE <content styleCode="Lilliam lics"> (NEGATIVE )</content> Glucose NEGATIVE <content Saint [Mass/volume] styleCode="[facility]an Donnie in Urine by d">Urine Medical Test strip Glucose Center </content>NEGA TIVE MG/DL<content styleCode="Lilliam lics"> (NEGATIVE MG/DL)</conten t> UNK NEGATIVE <content Saint styleCode="Dean Donnie d">Urine Medical Bilirubin Center </content>NEGA TIVE <content styleCode="Lilliam lics"> (NEGATIVE )</content> pH of Urine by 4.5-8.0 <content Saint Test strip styleCode="Dean Donnie d">Urine pH Medical </content>6.5 Center <content styleCode="Lilliam lics"> (4.5-8.0 )</content> Leukocyte NEGATIVE <content Saint esterase styleCode="[facility]an Donnie [Presence] in d">Urine Medical Urine by Test Leukocyte Center strip </content>NEGA TIVE <content styleCode="Lilliam lics"> (NEGATIVE )</content> Protein NEGATIVE <content Saint [Mass/volume] styleCode="[place]an Fields in Urine by d">Urine Medical Test strip Protein Center </content>TRAC E MG/DL<content styleCode="Lilliam lics"> (NEGATIVE MG/DL)</conten t> Nitrite NEGATIVE <content Saint [Presence] in styleCode="Dean Fields Urine by Test d">Urine Medical strip Nitrite Center </content>NEGA TIVE <content styleCode="Lilliam lics"> (NEGATIVE )</content> Urobilinogen 0.2-1.0 <content Saint [Units/volume] styleCode="[place] Fields in Urine by d">Urine Medical Test strip Urobilinogen Center </content>0.2 MG/DL<content styleCode="Lilliam lics"> (0.2-1.0 MG/DL)</conten t> UNK 0-3 <content Saint styleCode="Dean Donnie d">Urine Red Medical Blood Cell Center </content>0-3 HPF<content styleCode="Lilliam lics"> (0-3 HPF)</content> UNK NEGATIVE <content Saint styleCode="Dean Donnie d">Urine Medical Bacteria Center </content>FEW HPF<content styleCode="Lilliam lics"> (NEGATIVE HPF)</content> UNK 0-3 <content Saint styleCode="Dean Donnie d">Urine White Medical Blood Cell Center </content>0-3 HPF<content styleCode="Lilliam lics"> (0-3 HPF)</content> UNK 0-2 <content Saint styleCode="Daen Donnie d">Hyaline Medical Cast Center </content>1-3 LPF<content styleCode="Lilliam lics"> (0-2 LPF)</content> UNK NONE SEEN <content Saint styleCode="Dean Donnie d">Epithelial Medical Cell Center </content>2-5 HPF<content styleCode="Lilliam lics"> (NONE SEEN HPF)</content> UNK NONE SEEN <content Saint styleCode="Dean Donnie d">Urine Mucus Medical </content>MODE Center RATE HPF<content styleCode="Lilliam lics"> (NONE SEEN HPF)</content> ID Date Data Source HematologyRou.[id number] 10/20/2019 10:11:00 AM EDT [facility] 0400 Name Value Range Interpretation Description Data Sup porting Code Source(s) Document(s ) Erythrocytes 4.4-5.9 <content Saint [#/volume] in styleCode="Bold Donnie Blood by ">Red Blood Medical Automated count Cell Count Center </content>5.20 MCUMM<content styleCode="Ital ics"> (4.4-5.9 MCUMM)</content > Hemoglobin 13.5-17. <content Saint [Mass/volume] in 5 styleCode="Bold Donnie Blood ">Hemoglobin Medical </content>14.8 Center G/DL<content styleCode="Ital ics"> (13.5-17.5 G/DL)</content> Leukocytes 4.4-11.0 <content Saint [#/volume] in styleCode="Bold Donnie Blood by ">White Blood Medical Automated count Cell Count Center </content>6.92 KCUMM<content styleCode="Ital ics"> (4.4-11.0 KCUMM)</content > Erythrocyte mean 26.0-34. <content Saint corpuscular 0 styleCode="Bold Donnie hemoglobin ">Mean Medical [Entitic mass] Corposcular Center by Automated Hemoglobin count </content>28.5 PG<content styleCode="Ital ics"> (26.0-34.0 PG)</content> Platelets 130-400 <content Saint [#/volume] in styleCode="Bold Donnie Blood by ">Platelet Medical Automated count Count Center </content>356 KCUMM<content styleCode="Ital ics"> (130-400 KCUMM)</content > Erythrocyte 11.5-14. <content Saint distribution 5 styleCode="Bold Donnie width [Ratio] by ">Red Cell Medical Automated count Distribution Center Width </content>13.5 %<content styleCode="Ital ics"> (11.5-14.5 %)</content> Hematocrit 41.0-53. <content Saint [Volume 0 styleCode="Bold Donnie Fraction] of ">Hematocrit Medical Blood by </content>44.4 Center Automated count %<content styleCode="Ital ics"> (41.0-53.0 %)</content> Erythrocyte mean 80.0-100 <content Saint corpuscular .0 styleCode="Bold Donnie volume [Entitic ">Mean Medical volume] by Corpuscular Center Automated count Volume </content>85.4 FL<content styleCode="Ital ics"> (80.0-100.0 FL)</content> Erythrocyte mean 32.0-37. <content Saint corpuscular 0 styleCode="Bold Donnie hemoglobin ">Mean Corpus. Medical concentration Hgb Center [Mass/volume] by Concentration Automated count (MCHC) </content>33.3 G/DL<content styleCode="Ital ics"> (32.0-37.0 G/DL)</content> UNK 0.0 <content Saint styleCode="Bold Donnie ">Nucleated Red Medical Blood Cell Center Count </content>0.00 KCUMM<content styleCode="Ital ics"> (0.0 KCUMM)</content > Platelet mean 8.0-11.0 <content Saint volume [Entitic styleCode="Bold Donnie volume] in Blood ">Mean Platelet Medical by Automated Volume Center count </content>10.9 FL<content styleCode="Ital ics"> (8.0-11.0 FL)</content> UNK 0 <content Saint styleCode="Bold Donnie ">Nucleated Red Medical Blood Cell Center </content>0.0 /100<content styleCode="Ital ics"> (0 /100)</content> ID Date Data Source GFR(Creatinine).[id number] 10/20/2019 10:11:00 AM EDT [facility] 0-0400 Name Value Range Interpretation Code Description Data Eleni rce(s) Supporting Document(s ) UNK > 60 <content Saint Donnie styleCode="Bold"> Medical Cent er EGFR </content>92 GFR<content styleCode="Italic s"> (> 60 GFR)</content> ID Date Data Source [facility].[id number] 10/20/2019 10:11:00 AM EDT [facility] Name Value Range Interpretation Description Data Sup porting Code Source(s) Document(s ) Chloride 98-107 <content Saint [Moles/volume] styleCode="Dean Donnie in Serum or d">Chloride Medical Plasma </content>104 Center MEQ/L<content styleCode="Lilliam lics"> (98-107 MEQ/L)</conten t> Sodium 137-145 <content Saint [Moles/volume] styleCode="Dean Donnie in Serum or d">Sodium Medical Plasma </content>138 Center MEQ/L<content styleCode="Lilliam lics"> (137-145 MEQ/L)</conten t> Potassium 3.5-5.3 <content Saint [Moles/volume] styleCode="Dean Donnie in Serum or d">Potassium Medical Plasma </content>3.5 Center MEQ/L<content styleCode="Lilliam lics"> (3.5-5.3 MEQ/L)</conten t> Carbon 22-30 Above high normal <content Saint dioxide, total styleCode="Dean Donnie [Moles/volume] d">Carbon Medical in Serum or Dioxide Center Plasma </content>31 MEQ/L H<content styleCode="Lilliam lics"> (22-30 MEQ/L)</conten t> Creatinine 0.5-1.3 <content Saint [Mass/volume] styleCode="Dean Donnie in Serum or d">Creatinine Medical Plasma </content>1.1 Center MG/DL<content styleCode="Lilliam lics"> (0.5-1.3 MG/DL)</conten t> Glucose 74-106 <content [facility] [Mass/volume] styleCode="Dean Donnie in Serum or d">Glucose Medical Plasma </content>98 Center MG/DL<content styleCode="Lilliam lics"> (74-106 MG/DL)</conten t> UNK 9-20 <content Saint styleCode="Dean Morrells d">BUN Medical </content>16 Center MG/DL<content styleCode="Lilliam lics"> (9-20 MG/DL)</conten t> Calcium 8.4-10.2 <content Saint [Mass/volume] styleCode="Dean Morrells in Serum or d">Calcium Medical Plasma </content>9.3 Center MG/DL<content styleCode="Lilliam lics"> (8.4-10.2 MG/DL)</conten t> UNK > 60 <content Saint styleCode="Dean Morrells d">EGFR Medical </content>92 Center GFR<content styleCode="Lilliam lics"> (> 60 GFR)</content> ID Date Data Source Liver 01/11/2018 12:42:00 PM EDT [facility] Fibrosis.[id number] Name Value Range Interpretation Description Data Sup porting Code Source(s) Document(s ) Gamma glutamyl 15-73 <content Saint transferase styleCode="Dean Fields [Enzymatic d">GGT Medical activity/volume </content>35 Center ] in Serum or IU/L<content Plasma styleCode="Lilliam lics"> (15-73 IU/L)</content > ID Date Data Source Liver 01/11/2018 12:42:00 PM T [facility] Profile.[id number] Name Value Range Interpretation Description Data Sup porting Code Source(s) Document(s ) Alanine 7-50 <content Saint aminotransferase styleCode="Bold"> Bautista hs [Enzymatic Alanine Medical activity/volume] Aminotransferase Center in Serum or Plasma (ALT) </content>37 IU/L<content styleCode="Italic s"> (7-50 IU/L)</content> Alkaline 38-126 <content [facility] phosphatase styleCode="Bold"> Donnie [Enzymatic Alkaline Medical activity/volume] Phosphatase (ALP) Cente r in Serum or Plasma </content>116 IU/L<content styleCode="Italic s"> (38-126 IU/L)</content> Aspartate 17-59 <content [facility] aminotransferase styleCode="Bold"> Bautista hs [Enzymatic Aspartate Medical activity/volume] Aminotransferase Center in Serum or Plasma (AST) </content>47 IU/L<content styleCode="Italic s"> (17-59 IU/L)</content> Albumin 3.5-5.0 <content [facility] [Mass/volume] in styleCode="Bold"> Bautista hs Serum or Plasma Albumin Medical </content>4.0 Center G/DL<content styleCode="Italic s"> (3.5-5.0 G/DL)</content> Bilirubin.total 0.2-1.3 <content [facility] [Mass/volume] in styleCode="Bold"> Bautista hs Serum or Plasma Bilirubin Total Medical </content>0.5 Center MG/DL<content styleCode="Italic s"> (0.2-1.3 MG/DL)</content> UNK 0.0-0.3 <content Saint styleCode="Bold"> [facility] Bilirubin, Direct Medical </content>< 0.2 Center MG/DL<content styleCode="Italic s"> (0.0-0.3 MG/DL)</content> ID Date Data Source CHMROUTINECCDA.[id number] 01/11/2018 12:42:[address] [facility] -0400 Name Value Range Interpretation Description Data Sup porting Code Source(s) Document(s ) Gamma glutamyl 15-73 <content [facility] transferase styleCode="Dean Donnie [Enzymatic d">GGT Medical activity/volume </content>35 Center ] in Serum or IU/L<content Plasma styleCode="Lilliam lics"> (15-73 IU/L)</content > ID Date Data Source [facility].[id number] 01/11/2018 12:42:00 PM EDT [facility] Name Value Range Interpretation Description Data Sup porting Code Source(s) Document(s ) Bilirubin.total 0.2-1.3 <content [facility] [Mass/volume] in styleCode="Bold"> Bautista hs Serum or Plasma Bilirubin Total Medical </content>0.5 Center MG/DL<content styleCode="Italic s"> (0.2-1.3 MG/DL)</content> Aspartate 17-59 <content [facility] aminotransferase styleCode="Bold"> Bautista hs [Enzymatic Aspartate Medical activity/volume] Aminotransferase Center in Serum or Plasma (AST) </content>47 IU/L<content styleCode="Italic s"> (17-59 IU/L)</content> Alanine 7-50 <content [facility] aminotransferase styleCode="Bold"> Bautista hs [Enzymatic Alanine Medical activity/volume] Aminotransferase Center in Serum or Plasma (ALT) </content>37 IU/L<content styleCode="Italic s"> (7-50 IU/L)</content> Alkaline 38-126 <content [facility] phosphatase styleCode="Bold"> Donnie [Enzymatic Alkaline Medical activity/volume] Phosphatase (ALP) Cente r in Serum or Plasma </content>116 IU/L<content styleCode="Italic s"> (38-126 IU/L)</content> Albumin 3.5-5.0 <content [facility] [Mass/volume] in styleCode="Bold"> Bautista hs Serum or Plasma Albumin Medical </content>4.0 Center G/DL<content styleCode="Italic s"> (3.5-5.0 G/DL)</content> ID Date Data Source Liver 11/08/2017 01:29:00 PM EDT [facility] Profile.[id number] Name Value Range Interpretation Description Data Sup porting Code Source(s) Document(s ) Aspartate 17-59 <content [facility] aminotransferase styleCode="Bold"> Bautista hs [Enzymatic Aspartate Medical activity/volume] Aminotransferase Center in Serum or Plasma (AST) </content>49 IU/L<content styleCode="Italic s"> (17-59 IU/L)</content> Alkaline 38-126 Above high <content Saint phosphatase normal styleCode="Bold"> Donnie [Enzymatic Alkaline Medical activity/volume] Phosphatase (ALP) Cente r in Serum or Plasma </content>153 IU/L H<content styleCode="Italic s"> (38-126 IU/L)</content> Bilirubin.total 0.2-1.3 <content [facility] [Mass/volume] in styleCode="Bold"> Bautista hs Serum or Plasma Bilirubin Total Medical </content>1.0 Center MG/DL<content styleCode="Italic s"> (0.2-1.3 MG/DL)</content> Alanine 7-50 <content [facility] aminotransferase styleCode="Bold"> Bautista hs [Enzymatic Alanine Medical activity/volume] Aminotransferase Center in Serum or Plasma (ALT) </content>24 IU/L<content styleCode="Italic s"> (7-50 IU/L)</content> Albumin 3.5-5.0 <content [facility] [Mass/volume] in styleCode="Bold"> Bautista hs Serum or Plasma Albumin Medical </content>4.4 Center G/DL<content styleCode="Italic s"> (3.5-5.0 G/DL)</content> ID Date Data Source LIPID.[id number] 11/08/2017 01:29:00 PM EDT [facility] Name Value Range Interpretation Description Data Sup porting Code Source(s) Document(s ) Triglyceride < 150 <content Saint [Mass/volume] in styleCode="Dean Donnie Serum or Plasma d">Triglycerid [facility] Center </content>116 MG/DL<content styleCode="Lilliam lics"> (< 150 MG/DL)</conten t> Cholesterol -<200 Above high normal <content Saint [Mass/volume] in styleCode="Dean Donnie Serum or Plasma d">Cholesterol Medical </content>219 Center MG/DL H<content styleCode="Lilliam lics"> (-<200 MG/DL)</conten t> UNK > 60 <content Saint styleCode="Dean Donnie d">HDL- Medical Cholesterol Center </content>61 MG/DL<content styleCode="Lilliam lics"> (> 60 MG/DL)</conten t> UNK < 100 Above high normal <content Saint styleCode="Dean Donnie d">LDL-Cholest Medical tiago Center </content>135 MG/DL H<content styleCode="Lilliam lics"> (< 100 MG/DL)</conten t> ID Date Data Source HematologyRou.[id number] 11/08/2017 01:29:00 PM EDT [facility] 0400 Name Value Range Interpretation Description Data Sup porting Code Source(s) Document(s ) Erythrocytes 4.4-5.9 <content Saint [#/volume] in styleCode="Bold Donnie Blood by ">Red Blood Medical Automated count Cell Count Center </content>5.74 MCUMM<content styleCode="Ital ics"> (4.4-5.9 MCUMM)</content > Leukocytes 4.4-11.0 <content Saint [#/volume] in styleCode="Bold Donnie Blood by ">White Blood Medical Automated count Cell Count Center </content>6.14 KCUMM<content styleCode="Ital ics"> (4.4-11.0 KCUMM)</content > Erythrocyte mean 80.0-100 <content Saint corpuscular .0 styleCode="Bold Donnie volume [Entitic ">Mean Medical volume] by Corpuscular Center Automated count Volume </content>81.7 FL<content styleCode="Ital ics"> (80.0-100.0 FL)</content> Hemoglobin 13.5-17. <content Saint [Mass/volume] in 5 styleCode="Bold Donnie Blood ">Hemoglobin Medical </content>15.7 Center G/DL<content styleCode="Ital ics"> (13.5-17.5 G/DL)</content> Hematocrit 41.0-53. <content Saint [Volume 0 styleCode="Bold Donnie Fraction] of ">Hematocrit Medical Blood by </content>46.9 Center Automated count %<content styleCode="Ital ics"> (41.0-53.0 %)</content> Erythrocyte 11.5-14. <content Saint distribution 5 styleCode="Bold Donnie width [Ratio] by ">Red Cell Medical Automated count Distribution Center Width </content>14.4 %<content styleCode="Ital ics"> (11.5-14.5 %)</content> Erythrocyte mean 26.0-34. <content Saint corpuscular 0 styleCode="Bold Donnie hemoglobin ">Mean Medical [Entitic mass] Corposcular Center by Automated Hemoglobin count </content>27.4 PG<content styleCode="Ital ics"> (26.0-34.0 PG)</content> Erythrocyte mean 32.0-37. <content Saint corpuscular 0 styleCode="Bold Donnie hemoglobin ">Mean Corpus. Medical concentration Hgb Center [Mass/volume] by Concentration Automated count (MCHC) </content>33.5 G/DL<content styleCode="Ital ics"> (32.0-37.0 G/DL)</content> Platelets 130-400 <content Saint [#/volume] in styleCode="Bold Donnie Blood by ">Platelet Medical Automated count Count Center </content>357 KCUMM<content styleCode="Ital ics"> (130-400 KCUMM)</content > UNK 0 <content Saint styleCode="Bold Donnie ">Nucleated Red Medical Blood Cell Center </content>0.0 /100<content styleCode="Ital ics"> (0 /100)</content> Platelet mean 8.0-11.0 Above high <content Saint volume [Entitic normal styleCode="Bold Donnie volume] in Blood ">Mean Platelet Medical by Automated Volume Center count </content>11.5 FL H<content styleCode="Ital ics"> (8.0-11.0 FL)</content> UNK 0.0 <content Saint styleCode="Bold Donnie ">Nucleated Red Medical Blood Cell Center Count </content>0.00 KCUMM<content styleCode="Ital ics"> (0.0 KCUMM)</content > ID Date Data Source GFR(Creatinine).[id number] 11/08/2017 01:29:00 PM EDT [facility] 0-0400 Name Value Range Interpretation Code Description Data Eleni rce(s) Supporting Document(s ) UNK > 60 <content [facility] styleCode="Bold"> Medical Cent er EGFR </content>93 GFR<content styleCode="Italic s"> (> 60 GFR)</content> ID Date Data Source CHMROUTINECCDA.[id number] 11/08/2017 01:29:[address] [facility] -0400 Name Value Range Interpretation Description Data Sup porting Code Source(s) Document(s ) UNK 4.2-5.8 <content [facility] styleCode="Bold Medical ">Hemoglobin Center A1C </content>5.5 %<content styleCode="Ital ics"> (4.2-5.8 %)</content> UNK >= 1.0 <content [facility] styleCode="Bold Medical ">AG Ratio Center </content>1.3 NM<content styleCode="Ital ics"> (>= 1.0 NM)</content> UNK 2.3-3.5 <content [facility] styleCode="Bold Medical ">Globulin Center </content>3.5 G/DL<content styleCode="Ital ics"> (2.3-3.5 G/DL)</content> Protein 6.3-8.2 <content [facility] [Mass/volum styleCode="Bold Medical e] in Serum ">Total Protein Center or Plasma </content>7.9 G/DL<content styleCode="Ital ics"> (6.3-8.2 G/DL)</content> ID Date Data Source [facility].[id number] 11/08/2017 01:29:00 PM EDT [facility] Name Value Range Interpretation Description Data Sup porting Code Source(s) Document(s ) Potassium 3.5-5.3 <content [facility] [Moles/volume] in styleCode="Bold"> Zach banner Serum or Plasma Potassium Medical </content>5.1 Center MEQ/L<content styleCode="Italic s"> (3.5-5.3 MEQ/L)</content> Sodium 137-145 <content Saint [Moles/volume] in styleCode="Bold"> [facility]s Serum or Plasma Sodium Medical </content>142 Center MEQ/L<content styleCode="Italic s"> (137-145 MEQ/L)</content> Carbon dioxide, 22-30 <content Saint total styleCode="Bold"> Donnie [Moles/volume] in Carbon Dioxide Medical Serum or Plasma </content>26 Center MEQ/L<content styleCode="Italic s"> (22-30 MEQ/L)</content> Chloride 98-107 <content [facility] [Moles/volume] in styleCode="Bold"> [facility] Serum or Plasma Chloride Medical </content>106 Center MEQ/L<content styleCode="Italic s"> (98-107 MEQ/L)</content> UNK 9-20 <content Saint styleCode="Bold"> Donnie BUN </content>9 Medical MG/DL<content Center styleCode="Italic s"> (9-20 MG/DL)</content> Calcium 8.4-10. <content Saint [Mass/volume] in 2 styleCode="Bold"> Bautista hs Serum or Plasma Calcium Medical </content>9.2 Center MG/DL<content styleCode="Italic s"> (8.4-10.2 MG/DL)</content> UNK > 60 <content Saint styleCode="Bold"> Donnie EGFR </content>93 Medical GFR<content Center styleCode="Italic s"> (> 60 GFR)</content> Glucose 74-106 <content [facility] [Mass/volume] in styleCode="Bold"> Bautista hs Serum or Plasma Glucose Medical </content>81 Center MG/DL<content styleCode="Italic s"> (74-106 MG/DL)</content> Creatinine 0.5-1.3 <content [facility] [Mass/volume] in styleCode="Bold"> Bautista hs Serum or Plasma Creatinine Medical </content>1.1 Center MG/DL<content styleCode="Italic s"> (0.5-1.3 MG/DL)</content> Aspartate 17-59 <content [facility] aminotransferase styleCode="Bold"> Bautista hs [Enzymatic Aspartate Medical activity/volume] Aminotransferase Center in Serum or Plasma (AST) </content>49 IU/L<content styleCode="Italic s"> (17-59 IU/L)</content> Alanine 7-50 <content Saint aminotransferase styleCode="Bold"> Bautista hs [Enzymatic Alanine Medical activity/volume] Aminotransferase Center in Serum or Plasma (ALT) </content>24 IU/L<content styleCode="Italic s"> (7-50 IU/L)</content> Alkaline 38-126 Above high <content Saint phosphatase normal styleCode="Bold"> Donnie [Enzymatic Alkaline Medical activity/volume] Phosphatase (ALP) Cente r in Serum or Plasma </content>153 IU/L H<content styleCode="Italic s"> (38-126 IU/L)</content> Bilirubin.total 0.2-1.3 <content [facility] [Mass/volume] in styleCode="Bold"> Bautista hs Serum or Plasma Bilirubin Total Medical </content>1.0 Center MG/DL<content styleCode="Italic s"> (0.2-1.3 MG/DL)</content> Albumin 3.5-5.0 <content [facility] [Mass/volume] in styleCode="Bold"> Bautista hs Serum or Plasma Albumin Medical </content>4.4 Center G/DL<content styleCode="Italic s"> (3.5-5.0 G/DL)</content> Procedure Social History Code Duration Value Status Description Data Source(s ) Smoking 11/14/2019 denies completed denies alcohol [facility] (St 12:00:00 AM EDT alcohol denies smoking [facility] denies denies illicit [facility]) smoking drugs denies illicit drugs Smoking 11/14/2019 Unknown if completed Unknown if ever [facility] (S t 12:00:00 AM EDT ever smoked smoked [facility]) Smoking 10/30/2019 denies completed denies alcohol [facility]GEN (St 12:00:00 AM EDT alcohol denies smoking [facility], denies denies illicit PC) smoking drugs denies illicit drugs Smoking 10/30/2019 Unknown if completed Unknown if ever MEDGEN (S t 12:00:00 AM EDT ever smoked smoked [facility]) Smoking 10/20/2019 Denies Ever completed Denies Ever [facility] 10:00:00 AM EDT Smoked Smoked Medical C enter Smoking 10/20/2019 Denies Ever completed Denies Ever [facility] Morrell s 09:23:00 AM EDT Smoked Smoked Medical C enter Caffeine Use 08/15/2019 completed NEXTGEN (Francisco nt Details 12:00:00 AM EDT [facility]) Smoking 08/15/2019 Unknown if completed Unknown if ever NEXTGEN ( Saint 12:00:00 AM EDT ever smoked smoked [facility]) Smoking 04/16/2018 Denies Ever completed Denies Ever [place] [facility] 12:23:00 PM EST Smoked Smoked Medical C enter Smoking 04/16/2018 Denies Ever completed Denies Ever [facility] Morrell s 11:12:00 AM EST Smoked Smoked Medical C enter Smoking 03/06/2018 Denies Ever completed Denies Ever [facility] Morrell s 02:49:00 PM EST Smoked Smoked Medical C enter Alcohol Use completed NEXTGEN (Bebe t Details [facility]) Smoking Unknown if completed Unknown if ever [facility] ever smoked smoked Medical Cente r Vital Signs ID Date Data Source UNK Name Value Range Interpretation Code Description Data Source(s) Heart rate 102 /min 102 /min [facility] ) Respiratory rate 15 /min 15 /min [facility] ( [facility]) Inhaled oxygen 98 % 98 % [facility] ([facility]) Body mass index 25.3 kg/m2 25.3 kg/m2 MEDGEN (S t (BMI) [Ratio] [facility]) Diastolic blood 90 mm[Hg] 90 mm[Hg] MEDGEN (S t pressure [facility]) Systolic blood 160 mm[Hg] 160 mm[Hg] MEDGEN ([facility]) Body weight 169 lb 169 lb MED[facility] ([facility]) Body height 68.5 in 68.5 in MEDGEN ([facility]) Heart rate 102 /min 102 /min [facility] ([facility]) Respiratory rate 15 /min 15 /min MEDGEN ( [facility]) Inhaled oxygen 98 % 98 % [facility] ([facility]) Body mass index 25.3 kg/m2 25.3 kg/m2 MEDGEN (S t (BMI) [Ratio] [facility], ) Diastolic blood 90 mm[Hg] 90 mm[Hg] MEDGEN (S t pressure [facility]) Systolic blood 160 mm[Hg] 160 mm[Hg] MEDGEN ([facility]) Body weight 169 lb 169 lb [facility]) Body height 68.5 in 68.5 in [facility] ([facility]) Body temperature 36.929835 36.485429 [facility] Respiratory rate 18 /min 18 /min [facility] Oxygen saturation 99 % 99 % [facility] Arterial blood [facility] by Pulse oximetry Heart rate 73 /min 73 /min [facility] Diastolic blood 113 mm[Hg] 113 mm[Hg] [facility] Systolic blood 154 mm[Hg] 154 mm[Hg] [facility] Body weight 113.151431 113.882929 kg [facility] Measured kg Medical Center Body temperature 36.561889 36.149124 [facility] Respiratory rate 18 /min 18 /min [facility] Oxygen saturation 99 % 99 % [facility] Arterial blood [facility] by Pulse oximetry Heart rate 82 /min 82 /min [facility] Body height 175.980611 175.339893 cm [facility] Diastolic blood 112 mm[Hg] 112 mm[Hg] [facility] Systolic blood 181 mm[Hg] 181 mm[Hg] [facility] Body mass index 36.9 kg/m2 36.9 kg/m2 [facility] (BMI) [Ratio] Medical [facility] ter Body weight 110.935876 110.349456 kg [facility] Measured kg [facility] Body temperature 36.885454 36.700352 [facility] Respiratory rate 18 /min 18 /min [facility] Oxygen saturation 97 % 97 % [facility] Arterial blood [facility] by Pulse oximetry Heart rate 88 /min 88 /min [facility] Body height 172.940409 172.270598 cm [facility] Diastolic blood 100 mm[Hg] 100 mm[Hg] [facility] Systolic blood 160 mm[Hg] 160 mm[Hg] [facility] Body mass index 36.8 kg/m2 36.8 kg/m2 [facility] (BMI) [Ratio] Medical [address] [facility] Body temperature 36.149814 36.652805 [facility] Respiratory rate 18 /min 18 /min [facility] Oxygen saturation 96 % 96 % [facility] Arterial blood [facility] by Pulse oximetry Heart rate 87 /min 87 /min [facility] Diastolic blood 93 mm[Hg] 93 mm[Hg] [facility] pressure [facility] Systolic blood 166 mm[Hg] 166 mm[Hg] [facility] Body temperature 36.320858 36.727757 [facility] Respiratory rate 18 /min 18 /min [facility] Oxygen saturation 96 % 96 % [facility] in Arterial blood [facility] by Pulse oximetry Heart rate 9 /min 9 /min [facility] Diastolic blood 101 mm[Hg] 101 mm[Hg] [facility] Systolic blood 193 mm[Hg] 193 mm[Hg] [facility] Patient Treatment Plan of Care Planned Activity Planned Date Details Description Data Source (s) Omeprazole 20 MG Delayed 01/11/2018 NEX TGEN (Saint Release Oral Capsule 12:00:00 AM [facility]) atorvastatin 40 MG Oral 01/11/2018 NEXT GEN (Saint Tablet 12:00:00 AM [facility]) Chlorthalidone 25 MG Oral 01/11/2018 NE XTGEN (Saint Tablet 12:00:00 AM [facility]) Amlodipine 10 MG Oral 01/11/2018 NEXTGE N (Saint Tablet 12:00:00 AM [facility]) Cyclobenzaprine 06/30/2016 NEXTGEN (Francisco nt hydrochloride 10 MG Oral 12:00:00 AM [facility]) back brace 06/30/2016 NEXTGEN (Saint 12:00:00 AM [facility]) Amlodipine 10 MG Oral [facility] toradol Directions : 1 Saint Donnie tablet q 6 hours prn for Med [facility] Center pain Omeprazole 20 MG Delayed Francisco nt Donnie Release Oral Capsule [facility] Naproxen 500 MG Oral Tablet [facility] Methocarbamol 500 MG Oral Sa [facility] Tablet [facility] meloxicam 7.5 MG Oral [facility] Tablet [facility] meloxicam 7.5 MG Oral [facility] Tablet [facility] Chlorthalidone 25 MG Oral Sa int [facility] Tablet [facility] atorvastatin 40 MG Oral [facility] Amlodipine 10 MG Oral [facility] toradolDirections: 1 tablet Valmys q 6 hours prn for pain Medic al Center ketorolac 10 mg Tablet [facility] Methocarbamol 500 MG Oral Sa [facility] Naproxen 500 MG Oral Tablet [facility] Omeprazole 20 MG Delayed Francisco nt [facility] Release Oral Capsule [facility] Chlorthalidone 25 MG Oral [facility] atorvastatin 40 MG Oral [facility] Amlodipine 10 MG Oral [facility] toradol Directions : 1 Saint Donnie tablet q 6 hours prn for Med ical Center pain
[2019-11-27 12:41] LABS: ALBUMIN 4.3 g/dl (3.4-5.0); ALK PHOS 137 U/L (45-117); ANION GAP 7 MMOL/L (8-16); BILIRUBIN,TOTAL 0.6 mg/dL (0.2-1); BLOOD UREA NITROGEN 8.9 mg/dL (7-18); CALCIUM 9.2 mg/dL (8.5-10.1); CHLORIDE 104 mmol/L (98-107); CO2 29 mmol/L (21-32); CREATININE 1.3 mg/dL (0.55-1.3); GLUCOSE,RANDOM 86 mg/dL (74-106); POTASSIUM 3.4 mmol/L (3.5-5.1); SGOT/AST 27 U/L (15-37); SGPT/ALT 20 U/L (13-61); SODIUM 140 mmol/L (136-145); TOT PROT 8.3 g/dl (6.4-8.2)
--- NOTE | 2019-11-27 12:59 | PDOC ---
Documentation entered by Flor Mcknight SCRIBE, acting as scribe for Matt Brandt MD. Matt Brandt MD: This documentation has been prepared by the Juan Luis scherer Brenda, SCRIBE, under my direction and personally reviewed by me in its entirety. I confirm that the documentation accurately reflects all work, treatment, procedures, and medical decision making performed by me. Attending Attestation - Resident Resident Name: Marshal Arredondo - ED Attending Attestation I have performed the following: I have examined & evaluated the patient, The case was reviewed & discussed with the resident, I agree w/resident's findings & plan, Exceptions are as noted - HPI HPI: 11/27/19 12:41 The patient is a 49 years old with past medical history significant for schizophrenia hypertension hyperlipidemia presents to the emergency department with some abdominal discomfort after eating a meal yesterday. Patient is currently being followed by Dr. Chacon for pain management for a herniated disc with radiation to his right leg. No changes in that complaint. Denies incontinence. He was concerned today because he feels his diabetes is out of control he has had increased thirst increased urination and had some mild abdominal discomfort after eating yesterday Currently feels better symptoms are mild to moderate have resolved with time. The patient denies chest pain, shortness of breath, headache and dizziness. Denies fever, chills, nausea, vomiting, diarrhea and constipation. Denies dysuria, frequency, urgency and hematuria. Allergies: NKA Past surgical history: Social history: No reported hx of tobacco use, alcohol use or illicit drug use. PCP: 11/27/19 12:58 - Physicial Exam PE: 11/27/19 12:58 Vitals: Triage Vital signs reviewed General Appearance: No acute distress, well nourished well developed, Head: Atraumatic, Eyes: Pupils equal reactive round, extraocular movement intact Cardiac: Regular rate and rhythym, no murmurs, no rubs, no gallops, Lungs: Clear to auscultation bilateral, good air movement bilaterally, Abdomen: Soft, non distended, normal bowel sounds, non tender to palpatio Extremities: Full range of motion to all extremities, no cyanosis, clubbing, or edema Skin: Warm and dry, no rashes or lesions, no rash, no petechiae Neuro: strength intact to all extremities, sensation intact to all extremities, gait normal Psych: Normal mood, normal affect - Medical Decision Making 11/27/19 17:59 49 years old well-appearing no apparent distress presents to the ED with abdominal discomfort yesterday after eating He was concerned about his diabetes given that he has been urinating more often His hemoglobin A1c was 5.4 his random glucose was 86 his troponin was negative his EKG demonstrates normal sinus rhythm with no ST elevations and T wave inversions. His heart score is 1. We have provided the patient with outpatient follow-up he feels better knowing that his labs are normal he has no complaints at this time no chest pain no shortness of breath Findings, the need for follow-up and strict return instructions discussed with patient. 11/27/19 17:59 Discharge - Discharge Information Problems reviewed: Yes Clinical Impression/Diagnosis: Chest pain Qualifiers: Chest pain type: unspecified Qualified Code(s): R07.9 - Chest pain, unspecified Hypertension Qualifiers: Hypertension type: unspecified Qualified Code(s): I10 - Essential (primary) hypertension Condition: Stable Disposition: HOME - Follow up/Referral Referrals: Jessica Magdaleno [Primary Care Provider] - - Patient Discharge Instructions Patient Printed Discharge Instructions: DI for High Blood Pressure Additional Instructions: You were seen in the emergency department for chest and abdominal pain and high blood pressure. You received EKG, chest x ray and labs, all of which were unremarkable. You were considered medically stable and safe to return home. Please follow up with your primary care provider regarding your visit to the emergency department within one week. Please return to the emergency department if you experience a worsening of your condition, trouble breathing, dizziness, lightheadedness, changes in sensation or strength, nausea or vomiting, changing or worsening symptoms. - Post Discharge Activity
[2019-11-27 13:42] VITALS: BP 149/94
[2019-11-27] MEDS ORDERED: KETOROLAC TROMETHAMINE 60 MG/2 ML VIAL IM ONE (14:08)
[2019-11-27] MEDS ORDERED: KETOROLAC TROMETHAMINE 60 MG/2 ML VIAL ONE (14:09)
--- NOTE | 2019-11-28 09:09 | EKG ---
Test Reason : Blood Pressure : / mmHG Vent. Rate : 091 BPM Atrial Rate : 091 BPM P-R Int : 152 ms QRS Dur : 092 ms QT Int : 372 ms P-R-T Axes : 053 -21 050 degrees QTc Int : 457 ms POOR DATA QUALITY, INTERPRETATION MAY BE ADVERSELY AFFECTED NORMAL SINUS RHYTHM NORMAL ECG WHEN COMPARED WITH ECG OF 16-DEC-2018 03:14, ST NO LONGER ELEVATED IN ANTERIOR LEADS NONSPECIFIC T WAVE ABNORMALITY NO LONGER EVIDENT IN INFERIOR LEADS Confirmed by MD JOSE, LORENA ([id number]) on 11/28/2019 9:09:37 AM Referred By: Confirmed By:LORENA GARCIA MD
== END 2019-11-27 14:16 | disposition home or self-care (01) ==
LOC: JER 11:08
PROC: 3E0233Z Introduction of Anti-inflammatory into Muscle, Percutaneous Approach (ICD-10-PCS; principal; 2019-11-27)
DX: R07.9 Chest pain, unspecified (principal); I10 Essential (primary) hypertension
CPT/HCPCS: 36415; 71046-TC-FY; 80053; 82550; 82553; 83036; 84484; 85025; 93005; 93010; 99285-25

== ENCOUNTER 2020-09-24 12:12 | Emergency (ER) | payer OTHER ==
[2020-09-24 12:31] VITALS: TEMP 98.2; BMI 47.8
[2020-09-24] MEDS ORDERED: KETOROLAC TROMETHAMINE 60 MG/2 ML VIAL IM ONE (13:09)
[2020-09-24] MEDS ORDERED: KETOROLAC TROMETHAMINE 60 MG/2 ML VIAL ONE (13:21)
[2020-09-24] MEDS ORDERED: amLODIPine BESYLATE 10 MG TABLET (FP) PO ONE (13:46)
[2020-09-24] MEDS ORDERED: amLODIPine BESYLATE 2.5 MG TABLET (FP) ONE (14:13)
[2020-09-24 16:19] VITALS: BP 167/105; PULSE 84
== END 2020-09-24 17:35 | disposition home or self-care (01) ==
LOC: JER 12:12
PROC: 3E0233Z Introduction of Anti-inflammatory into Muscle, Percutaneous Approach (ICD-10-PCS; principal; 2020-09-24)
DX: M54.5 Low back pain (principal)
CPT/HCPCS: 99284-25

== ENCOUNTER 2021-08-06 01:42 | Emergency (ER) | payer OTHER ==
[2021-08-06] MEDS ORDERED: KETOROLAC TROMETHAMINE 30 MG/1 ML VIAL IM ONE (02:07)
[2021-08-06] MEDS ORDERED: DEXAMETHASONE SOD PHOSPHATE 10 MG/1 ML VIAL IM ONE (02:08)
[2021-08-06] MEDS ORDERED: DEXAMETHASONE SOD PHOSPHATE 10 MG/1 ML VIAL ONE (02:33)
[2021-08-06] MEDS ORDERED: KETOROLAC TROMETHAMINE 30 MG/1 ML VIAL ONE (02:33)
[2021-08-06 02:37] VITALS: BP 180/73; PULSE 74; TEMP 98.2; BMI 38.0
== END 2021-08-06 03:41 | disposition home or self-care (01) ==
LOC: JER 01:42
PROC: 3E023GC Introduction of Other Therapeutic Substance into Muscle, Percutaneous Approach (ICD-10-PCS; principal; 2021-08-06)
PROC: 3E0233Z Introduction of Anti-inflammatory into Muscle, Percutaneous Approach (ICD-10-PCS; 2021-08-06)
DX: M54.50 Low back pain, unspecified (principal)
CPT/HCPCS: 99284-25; J1100

== ENCOUNTER 2021-10-08 18:21 | Emergency (ER) | payer OTHER ==
[2021-10-08 18:59] VITALS: BP 170/97; PULSE 90; RESP 16; TEMP 98.7; BMI 39.5
[2021-10-08] MEDS ORDERED: KETOROLAC TROMETHAMINE 30 MG/1 ML VIAL IM ONE (20:33)
[2021-10-08] MEDS ORDERED: KETOROLAC TROMETHAMINE 30 MG/1 ML VIAL ONE (20:34)
[2021-10-08] MEDS ORDERED: DEXAMETHASONE SOD PHOSPHATE 10 MG/1 ML VIAL IM ONE (20:59)
[2021-10-08] MEDS ORDERED: DEXAMETHASONE SOD PHOSPHATE 10 MG/1 ML VIAL ONE (21:00)
== END 2021-10-08 20:40 | disposition home or self-care (01) ==
LOC: JERFT 18:21
PROC: 3E023GC Introduction of Other Therapeutic Substance into Muscle, Percutaneous Approach (ICD-10-PCS; principal; 2021-10-08)
DX: M54.50 Low back pain, unspecified (principal)
CPT/HCPCS: 96372; 99284-25; J1100

== ENCOUNTER 2022-08-31 22:33 | Observation (INO) | payer OTHER ==
[2022-08-31 22:57] VITALS: BMI 39.5
[2022-08-31 23:25] LABS: BASO % 0.9 % (0-2.0); EOS % 0.6 % (0-4.5); HEMOGLOBIN 14.2 GM/dL (11.7-16.9); LYMPH % 22.5 % (8-40); MCH 27.6 pg (25.7-33.7); MCHC 33.7 g/dl (32.0-35.9); MEAN CELL VOLUME 81.9 fl (80-96); MEAN PLT VOLUME 8.6 fl (7.5-11.1); MONO % 4.9 % (3.8-10.2); NEUT % 71.1 % (42.8-82.8); PLATELET COUNT 418 10^3/uL (134-434); RBC 5.12 M/mm3 (4.00-5.60); RDW 15.2 % (11.9-15.9); WHITE BLOOD COUNT 9.9 K/mm3 (4.0-10.0)
[2022-08-31 23:38] LABS: INR 1.12 (0.83-1.09)
[2022-08-31 23:40] LABS: ACTIVATED PTT 35.2 SECONDS (25.2-36.5)
[2022-08-31 23:48] LABS: POTASSIUM 3.2 mmol/L (3.5-5.1)
[2022-08-31 23:50] LABS: ALBUMIN 3.7 g/dl (3.4-5.0); BLOOD UREA NITROGEN 11.9 mg/dL (7-18); CALCIUM 9.5 mg/dL (8.5-10.1)
[2022-08-31 23:53] LABS: CREATININE 1.6 mg/dL (0.55-1.3)
[2022-08-31 23:55] LABS: BILIRUBIN,TOTAL 0.5 mg/dL (0.2-1); TOT PROT 7.3 g/dl (6.4-8.2)
[2022-09-01] MEDS ORDERED: SODIUM CHLORIDE 0.9% 500 ML INFUS.BAG IV ONE (00:47)
[2022-09-01] MEDS ORDERED: POTASSIUM CHLORIDE ORAL LIQUID 20 MEQ/15 ML PO ONE (00:47)
[2022-09-01] MEDS ORDERED: POTASSIUM CHLORIDE ORAL LIQUID 20 MEQ/15 ML ONE (01:21)
[2022-09-01] MEDS ORDERED: hydrALAZINE HCL 50 MG TABLET (FP) ONE (05:21)
[2022-09-01] MEDS: hydrALAZINE HCL 50 MG TABLET (FP) PO SCH ×4 (05:26→21:09)
[2022-09-01 06:26] LABS: MAGNESIUM 1.9 mg/dL (1.8-2.4)
[2022-09-01 06:27] LABS: HEMATOCRIT 44.2 % (35.4-49); HEMOGLOBIN 14.6 GM/dL (11.7-16.9); MEAN CELL VOLUME 84.7 fl (80-96); MEAN PLT VOLUME 9.6 fl (7.5-11.1); PLATELET COUNT 404 10^3/uL (134-434); RBC 5.22 M/mm3 (4.00-5.60); RDW 15.2 % (11.9-15.9); WHITE BLOOD COUNT 10.2 K/mm3 (4.0-10.0)
[2022-09-01] MEDS: HEPARIN NA (PORCINE) 5,000 UNITS/ML 1ML VIAL SQ SCH ×3 (06:42→21:09)
[2022-09-01 06:45] LABS: CALCIUM 8.8 mg/dL (8.5-10.1)
[2022-09-01 06:46] LABS: ALBUMIN 3.6 g/dl (3.4-5.0); MAGNESIUM 2.1 mg/dL (1.8-2.4)
[2022-09-01 06:49] LABS: CREATININE 1.4 mg/dL (0.55-1.3); PHOSPHOROUS 2.8 mg/dL (2.5-4.9)
[2022-09-01 06:50] LABS: BILIRUBIN,TOTAL 0.5 mg/dL (0.2-1); TOT PROT 7.2 g/dl (6.4-8.2)
[2022-09-01] MEDS ORDERED: ACETAMINOPHEN 325 MG TABLET (FP) PO PRN (10:26)
[2022-09-02] MEDS: hydrALAZINE HCL 50 MG TABLET (FP) PO SCH ×4 (05:35→22:09)
[2022-09-02] MEDS: HEPARIN NA (PORCINE) 5,000 UNITS/ML 1ML VIAL SQ SCH ×3 (05:35→22:09)
[2022-09-02] MEDS: CARVEDILOL 6.25 MG TABLET (FP) PO SCH ×2 (09:03→22:09)
[2022-09-02 10:24] LABS: BASO % 0.4 % (0-2.0); EOS % 1.7 % (0-4.5); HEMATOCRIT 48.6 % (35.4-49); HEMOGLOBIN 16.2 GM/dL (11.7-16.9); MCH 27.8 pg (25.7-33.7); MCHC 33.4 g/dl (32.0-35.9); MEAN CELL VOLUME 83.3 fl (80-96); MEAN PLT VOLUME 10.1 fl (7.5-11.1); MONO % 3.5 % (3.8-10.2); NEUT % 70.4 % (42.8-82.8); RBC 5.83 M/mm3 (4.00-5.60); RDW 15.2 % (11.9-15.9)
[2022-09-02 10:26] LABS: WHITE BLOOD COUNT 13.5 K/mm3 (4.0-10.0)
[2022-09-02 10:27] LABS: PLATELET COUNT 349 10^3/uL (134-434)
[2022-09-02 10:41] LABS: POTASSIUM 3.7 mmol/L (3.5-5.1)
[2022-09-02 10:43] LABS: ALBUMIN 3.8 g/dl (3.4-5.0); BLOOD UREA NITROGEN 11.5 mg/dL (7-18); CALCIUM 9.4 mg/dL (8.5-10.1)
[2022-09-02 10:46] LABS: CREATININE 1.3 mg/dL (0.55-1.3)
[2022-09-02 10:48] LABS: BILIRUBIN,TOTAL 0.4 mg/dL (0.2-1); TOT PROT 7.8 g/dl (6.4-8.2)
[2022-09-02 12:40] LABS: EPI CELLS 4 /uL (0-25.1); HYALINE CASTS 0 /uL (0-3.1); URINE APPEARANCE CLEAR; URINE BACTERIA 1 /uL (0-1359); URINE BILIRUBIN NEGATIVE (NEGATIVE); URINE COLOR YELLOW; URINE GLUCOSE (UA) NEGATIVE (NEGATIVE); URINE KETONE NEGATIVE (NEGATIVE); URINE LEUK ESTERASE NEGATIVE (NEGATIVE); URINE NITRITE NEGATIVE (NEGATIVE); URINE PROTEIN 1+ (NEGATIVE); URINE RBC 14 /uL (0-23.9); URINE UROBILINOGEN 0.2 mg/dL (0.2-1.0); URINE WBC 3 /uL (0-25.8)
[2022-09-02] MEDS ORDERED: hydrALAZINE HCL 25 MG TABLET (FP) PO ONE (17:25)
[2022-09-03] MEDS: HEPARIN NA (PORCINE) 5,000 UNITS/ML 1ML VIAL SQ SCH ×4 (05:29→21:38)
[2022-09-03] MEDS: hydrALAZINE HCL 50 MG TABLET (FP) PO SCH ×3 (05:59→21:29)
[2022-09-03] MEDS: CARVEDILOL 6.25 MG TABLET (FP) PO SCH (09:05)
[2022-09-03] MEDS ORDERED: CARVEDILOL 6.25 MG TABLET (FP) PO SCH (09:26)
[2022-09-03 10:43] LABS: HEMATOCRIT 43.3 % (35.4-49); HEMOGLOBIN 14.7 GM/dL (11.7-16.9); MEAN CELL VOLUME 82.4 fl (80-96); MEAN PLT VOLUME 8.8 fl (7.5-11.1); PLATELET COUNT 414 10^3/uL (134-434); RBC 5.25 M/mm3 (4.00-5.60)
[2022-09-03] MEDS ORDERED: hydrALAZINE HCL 50 MG TABLET (FP) PO SCH ×3 (15:02→22:00)
[2022-09-03] MEDS ORDERED: CARVEDILOL 12.5 MG TABLET (FP) PO ONE (15:04)
[2022-09-03 15:46] VITALS: RESP 20
[2022-09-03] MEDS ORDERED: A PO ONE (16:25)
[2022-09-03] MEDS ORDERED: hydrALAZINE HCL 25 MG TABLET (FP) PO ONE (16:25)
[2022-09-03] MEDS: CARVEDILOL 25 MG TABLET (FP) PO SCH (21:29)
[2022-09-04] MEDS: hydrALAZINE HCL 50 MG TABLET (FP) PO SCH ×2 (05:17→13:35)
[2022-09-04] MEDS: HEPARIN NA (PORCINE) 5,000 UNITS/ML 1ML VIAL SQ SCH ×2 (05:18→13:35)
[2022-09-04] MEDS: CARVEDILOL 25 MG TABLET (FP) PO SCH (10:10)
[2022-09-04 11:30] VITALS: TEMP 98.7
[2022-09-04] MEDS ORDERED: HYDROCHLOROTHIAZIDE 25 MG TABLET (FP) PO ONE (12:07)
[2022-09-04 12:22] VITALS: BP 156/104; PULSE 69
[2022-09-05] MEDS ORDERED: HYDROCHLOROTHIAZIDE 25 MG TABLET (FP) PO SCH (10:00)
== END 2022-09-04 14:47 | disposition home or self-care (01) ==
LOC: JER 22:33 → JERBED 09-01 01:54 → J5S 09-01 06:08
PROVIDERS: ADMIT Internal Medicine; ATTEND Internal Medicine
PROC: 3E023GC Introduction of Other Therapeutic Substance into Muscle, Percutaneous Approach (ICD-10-PCS; principal; 2022-09-01)
PROC: 3E0337Z Introduction of Electrolytic and Water Balance Substance into Peripheral Vein, Percutaneous Approach (ICD-10-PCS; 2022-09-01)
DX: R22.41 Localized swelling, mass and lump, right lower limb (principal); I10 Essential (primary) hypertension; F20.9 Schizophrenia, unspecified; R00.2 Palpitations; M54.50 Low back pain, unspecified; G89.29 Other chronic pain; Z91.011 Allergy to milk products
CPT/HCPCS: 36415; 73700-TC-RT; 76775-TC; 80053; 81003; 82550; 82553; 83036; 83735; 84100; 85025; 85027; 85610; 85730; 87040; 87086; 93005; 93010; 93306-TC; 93971-TC; 96372; 97116-GP; 97161-GP; 99285-25; G0378; J1644

== ENCOUNTER 2023-08-19 12:47 | Observation (INO) | payer OTHER ==
[2023-08-19 15:19] LABS: BASO % 0.5 % (0-2.0); HEMOGLOBIN 13.5 GM/dL (11.7-16.9); LYMPH % 26.9 % (8-40); MCH 28.5 pg (25.7-33.7); MCHC 33.8 g/dl (32.0-35.9); MEAN CELL VOLUME 84.1 fl (80-96); MEAN PLT VOLUME 8.3 fl (7.5-11.1); MONO % 5.8 % (3.8-10.2); NEUT % 65.8 % (42.8-82.8); PLATELET COUNT 392 10^3/uL (134-434); RBC 4.76 M/mm3 (4.00-5.60); RDW 14.7 % (11.9-15.9); WHITE BLOOD COUNT 7.6 K/mm3 (4.0-10.0)
[2023-08-19 15:24] LABS: INR 0.99 (0.83-1.09); PROTHROMBIN TIME (PATIENT) 11.2 SEC (9.7-13.0)
[2023-08-19 15:27] LABS: ACTIVATED PTT 34.1 SECONDS (25.2-36.5)
[2023-08-19 15:38] LABS: POTASSIUM 3.2 mmol/L (3.5-5.1)
[2023-08-19 15:40] LABS: ALBUMIN 3.5 g/dl (3.4-5.0); BLOOD UREA NITROGEN 15.1 mg/dL (7-18); CALCIUM 8.9 mg/dL (8.5-10.1); MAGNESIUM 2.3 mg/dL (1.8-2.4)
[2023-08-19 15:43] LABS: CREATININE 1.6 mg/dL (0.55-1.3)
[2023-08-19 15:45] LABS: BILIRUBIN,TOTAL 0.5 mg/dL (0.2-1); TOT PROT 7.1 g/dl (6.4-8.2)
[2023-08-19] MEDS ORDERED: ACETAMINOPHEN INJECTION 100 ML IVPB ONE (16:50)
[2023-08-19] MEDS ORDERED: POTASSIUM CHLORIDE TABS 20 MEQ TABLET.ER (FP) PO ONE (16:50)
[2023-08-19] MEDS: POTASSIUM CHLORIDE ORAL LIQUID 20 MEQ/15 ML PO ONE ×2 (16:53→23:47)
[2023-08-19] MEDS: ACETAMINOPHEN 1000 MG/100 ML BAG IVPB ONE (16:53)
[2023-08-19] MEDS ORDERED: POTASSIUM CHLORIDE ORAL LIQUID 20 MEQ/15 ML ONE ×2 (16:55→23:28)
[2023-08-19] MEDS: SODIUM CHLORIDE 0.9% 500 ML INFUS.BAG IV ONE (17:17)
[2023-08-19 22:53] LABS: CALCIUM 8.7 mg/dL (8.5-10.1)
[2023-08-19 22:54] LABS: BLOOD UREA NITROGEN 14.8 mg/dL (7-18)
[2023-08-19 22:57] LABS: CREATININE 1.6 mg/dL (0.55-1.3)
[2023-08-20] MEDS: KCL 20 MEQ PREMIX BAG 20 MEQ/100 ML INFUS.BAG IVPB ONE (01:14)
[2023-08-20] MEDS ORDERED: KCL 10 MEQ IVPB 10 MEQ/100 ML INFUS.BAG IVPB ONE (01:15)
[2023-08-20] MEDS: KCL 10 MEQ IVPB 10 MEQ/100 ML INFUS.BAG IVPB SCH ×2 (01:39→17:26)
[2023-08-20] MEDS: MAGNESIUM SULF 50% (8.12 MEQ/2 ML-1 GM VIAL) IVPB ONE (05:15)
[2023-08-20 06:58] LABS: HEMATOCRIT 38.6 % (35.4-49); HEMOGLOBIN 13.2 GM/dL (11.7-16.9); MCH 28.5 pg (25.7-33.7); MCHC 34.1 g/dl (32.0-35.9); MEAN CELL VOLUME 83.6 fl (80-96); MEAN PLT VOLUME 8.9 fl (7.5-11.1); PLATELET COUNT 380 10^3/uL (134-434); RBC 4.62 M/mm3 (4.00-5.60); WHITE BLOOD COUNT 7.9 K/mm3 (4.0-10.0)
[2023-08-20] MEDS: HEPARIN NA (PORCINE) 5,000 UNITS/ML 1ML VIAL SQ SCH (06:58)
[2023-08-20 07:15] LABS: CHLORIDE 102 mmol/L (98-107); SODIUM 142 mmol/L (136-145)
[2023-08-20 07:17] LABS: CALCIUM 8.4 mg/dL (8.5-10.1); CO2 32 mmol/L (21-32)
[2023-08-20 07:18] LABS: GLUCOSE,RANDOM 98 mg/dL (74-106)
[2023-08-20 07:21] LABS: CREATININE 1.4 mg/dL (0.55-1.3)
[2023-08-20 07:24] LABS: ANION GAP 8 mmol/L (4-13); POTASSIUM 2.9 mmol/L (3.5-5.1)
[2023-08-20] MEDS ORDERED: ASPIRIN 81 MG CHEWABLE TABLETS ONE (09:17)
[2023-08-20] MEDS: ASPIRIN 81 MG CHEWABLE TABLETS PO SCH (09:26)
[2023-08-20 16:35] VITALS: BMI 43.0
[2023-08-20 17:55] LABS: POTASSIUM 3.1 mmol/L (3.5-5.1)
[2023-08-20 17:57] LABS: CALCIUM 9.1 mg/dL (8.5-10.1)
[2023-08-20 17:58] LABS: BLOOD UREA NITROGEN 13.8 mg/dL (7-18)
[2023-08-20 18:01] LABS: CREATININE 1.5 mg/dL (0.55-1.3)
[2023-08-20] MEDS: POTASSIUM CHLORIDE ORAL LIQUID 20 MEQ/15 ML PO ONE (18:17)
[2023-08-20] MEDS: LOSARTAN POTASSIUM 50 MG TABLET PO ONE ×2 (21:14→21:16)
[2023-08-21 09:58] LABS: POTASSIUM 3.1 mmol/L (3.5-5.1)
[2023-08-21 10:01] LABS: CALCIUM 8.9 mg/dL (8.5-10.1)
[2023-08-21 10:02] LABS: BLOOD UREA NITROGEN 11.5 mg/dL (7-18)
[2023-08-21] MEDS: LOSARTAN POTASSIUM 50 MG TABLET PO SCH (10:04)
[2023-08-21 10:05] LABS: CREATININE 1.4 mg/dL (0.55-1.3)
[2023-08-21 10:37] VITALS: RESP 18
[2023-08-21] MEDS: POTASSIUM CHLORIDE ORAL LIQUID 20 MEQ/15 ML PO ONE ×2 (12:49→16:42)
[2023-08-21 18:16] VITALS: BP 156/83; PULSE 76; TEMP 97.9
[2023-08-21] MEDS ORDERED: MELATONIN 5 MG TABLETS PO SCH (22:00)
[2023-08-21] MEDS ORDERED: ATORVASTATIN CA 80 MG TABLET (FP) PO SCH (22:00)
[2023-08-22] MEDS ORDERED: FAMOTIDINE 20 MG TABLET PO SCH (10:00)
== END 2023-08-21 18:47 | disposition home or self-care (01) ==
LOC: JER 12:47 → INTOOBSV 08-20 03:00 → UNDOADMOB 08-20 03:00 → JERBED 08-20 03:00 → J4W 08-20 14:40 → JERBED 08-20 14:40 → J4W 08-21 11:04 → JERBED 08-21 11:04
PROVIDERS: ADMIT Internal Medicine; ATTEND Internal Medicine
PROC: 3E033NZ Introduction of Analgesics, Hypnotics, Sedatives into Peripheral Vein, Percutaneous Approach (ICD-10-PCS; principal; 2023-08-21)
PROC: 3E023GC Introduction of Other Therapeutic Substance into Muscle, Percutaneous Approach (ICD-10-PCS; 2023-08-21)
PROC: 3E0337Z Introduction of Electrolytic and Water Balance Substance into Peripheral Vein, Percutaneous Approach (ICD-10-PCS; 2023-08-21)
DX: E87.6 Hypokalemia (principal); R60.0 Localized edema; E66.9 Obesity, unspecified; F31.9 Bipolar disorder, unspecified; M62.81 Muscle weakness (generalized); I10 Essential (primary) hypertension; F16.10 Hallucinogen abuse, uncomplicated; Z86.73 Personal history of transient ischemic attack (TIA), and cerebral infarction without residual deficits; Z88.8 Allergy status to other drugs, medicaments and biological substances
CPT/HCPCS: 36415; 70450-TC; 71045-TC-FY; 80048; 80053; 82088; 82533; 82962; 83735; 83880; 84100; 84244; 84484; 85025; 85027; 85610; 85730; 93005; 93010; 93970-TC; 96372; 96374; 97116-GP; 99285-25; G0378; J0131; J1644